=== PATIENT | male | born 1955 | race Caucasian/White ===

== ENCOUNTER → 2016-08-29 | Outpatient (CLI) | payer BC ==
[~2016-08-29] VITALS: Ht 177.8 cm; Wt 127.8 kg
[~2016-08-29] MED LIST: ACETAMINOPHEN325 M1 PO; ALTACE2.5 MG PO; AMBIEN 10 MG TA10 MG PO; ASPIR 8181 MG PO; ASPIRIN325 PO; BACTRIM DS TAB1 EACH; CARVEDILOL3.125 MG PO; CARVEDILOL6.25 MG PO; DOXYCYCLINE 10100 MG PO; FERREX 150150 MG PO; GLUCOPHAGE1000 MG PO; GRALISE1 EACH; GRALISE600 MG PO; HYDROCODON-ACE1 EAC2 PO; HYDROCODON-ACE1 EACH PO; IRON325 PO; KEFLEX500 M1 PO; KEFLEX500 MG PO; LACTINEX CHEWA1 EACH PO; LANTUS SUBQ; LANTUSSOLASTAR SUBQ; LASIX 40 MG TAB40 M2 PO; LIPITOR20 MG; LIPITOR80 MG PO; LISINOPRIL2.5 MG; LISINOPRIL20 MG PO; METFORMIN HYDR100 GM; MOM PO; MOVANTIK25 MG PO; NEURONTIN 300300 M1 PO; NEURONTIN 300M300 M2 PO; NEURONTIN300 MG; NEURONTIN600 MG PO; NORTRIPTYLINE H25 M3 PO; NORTRIPTYLINE H75 M1 PO; NOVOLOG FL100 UNIT/M; NOVOLOG MI100 UNIT/2 SUBQ; OXYCODONE HCL 55 MG; OXYCODONE HCL 55 MG PO; PERCOCET PO; PLAVIX 75 MG TA75 M1 PO; POTASSIUM20; PREDNISONE 20 M20 MG PO; REGRANEX1 TUBE; ROXICODONE5 M1 PO; ROXICODONE5 MG PO; SENOKOT-S1 TA1 PO; SILVADENE20 GM; STOOL SOFTENER100 MG PO; STOOL SOFTENER50 MG PO; TRULICITY0.75 MG/0. SQ; TYLENOL325 MG PO; UNICOMPLEX M TA1 TA1 PO; VENTOLIN HFA 1818 GM INH; VICODIN 5-5001 EACH PO; VITAMIN D1000 UNI1 PO; ZPAK PO
--- NOTE | ~2016-08-29 | HPC ---
[facility] [address] [place] [address] PAIN MANAGEMENT CONSULTATION Name: EDWIN DAVIS III Room #: [facility] [id number] Admission: 08/29/16 Attend Phys: Edwin Maciel DO Discharge: Date of : 51 Report #: [id number] THIS REPORT FOR: //name// CC: GERALD Mccann MD DATE OF SERVICE: 08/29/2016 DATE OF SERVICE: 08/29/2016 CHIEF COMPLAINT: Bilateral upper extremity pain secondary to brachial plexopathy. HISTORY OF PRESENT ILLNESS: As you know, the patient is a 61-year-old male, who returns today in followup visit for medication management. As you are aware, the patient was injured during a surgery that led to bilateral upper extremity paresthesias secondary to brachial plexopathies. He continues to utilize medication for pain control and returns today in between trips to [facility] for refills of his medication. He is placing current pain score 2/10. He states the pain is "always there, but worse as the day goes on." He states medications is about the only thing that has improved his symptoms. This pain began after a 5-vessel bypass 09/04/2012. ALLERGIES: PENICILLIN. CURRENT MEDICATIONS: Oxycodone 5 mg 4 times a day, nortriptyline 25 mg 3 tabs p.o. at bedtime, gabapentin 300 mg dose 3 tabs in the morning and 5 tabs at night, Trulicity 0.75 mg subq per week, Movantik 25 mg per day, albuterol 2 puffs q. 4 hours p.r.n., cholecalciferol 1000 units per day, ferrous sulfate 325 mg per day, NovoLog 6 units before each meal, acetaminophen 325 mg dose p.r.n., potassium 20 mEq p.o. every day, ramipril 2.5 mg once a day, Plavix 75 mg per day, Senokot-S 1 tab per day, furosemide 40 mg per day, docusate sodium 100 mg per day, aspirin 81 mg per day, Lantus 30 units before bedtime, metformin 1000 mg twice a day, atorvastatin 80 mg per day, zolpidem 10 mg p.o. at bedtime. SOCIAL HISTORY: The patient denies tobacco, alcohol or IV or illicit drug use. He is working, not receiving workmen's compensation, unaccompanied today. IMAGING: No new imaging available. PHYSICAL EXAMINATION: VITAL SIGNS: Blood pressure 133/84, pulse is 100, respiratory rate 16 and unlabored. The patient 96% on room air, height 5 feet 10 inches tall, weight 281.8 pounds, BMI calculated 40.4. GENERAL: Well-developed, well-nourished, well-hydrated, [place] [address] PAIN MANAGEMENT CONSULTATION Name: SUSANEDWIN JESS [facility] Room #: REG [facility] [id number] Admission: 08/29/16 Attend Phys: Edwin Maciel DO Discharge: Date of : 53 Report #: [id number] 61-year-old male appearing stated age, placing current pain score today 2/10. HEENT: Normocephalic, atraumatic. Pupils equal, round, reactive to light. Extraocular muscles are intact. Sclerae nonicteric without injection. NEUROLOGIC: Cranial nerves 2-12 grossly intact. Speech is fluent. EXTREMITIES: Show no clubbing, no cyanosis, no edema. MUSCULOSKELETAL: Upper extremity strength is equal and symmetrical. Axle Turner strength is weakened bilaterally noted over the C6-C7 dermatome and partial C8 dermatomes. Atrophy of the hands has not been noted. Tactile sensation is also reduced along the C7 and C8 dermatomes. ASSESSMENT: 1. Bilateral brachial plexopathies. 2. Peripheral neuropathy. 3. Diabetic peripheral neuropathy. 4. Chronic intractable pain. PLAN: 1. The patient returns today in followup visit for continuation of medication therapy. The patient and I had a long discussion about the medications and whether or not they are effective for pain control. The patient indicates without the medications, he would not be able to go about his daily work activities. He would not be able to travel, which is one of the major component of his job. The patient is very pleased with response to medication, he feels they are working beneficially and wishes to continue the therapy. He is denying side effects with their use. 2. The patient was provided a prescription of gabapentin 300 mg dose 3 tabs in the morning and 5 tabs at night, #240, released today with 5 refills. 3. The patient was provided prescription, nortriptyline 75 mg a total dose, which is 325 mg tablets in the morning hours. He was given #90 tablets with 5 refills. 4. The patient was provided prescription of oxycodone 5 mg dose 1 tab p.o. every 6 hours p.r.n. for pain, I have given the patient #120 releases of today, 4 weeks from today, 8 weeks from today. 5. The patient will return to our clinic in 3 months for medication therapy or earlier if he has to adjust the timing for trip to [place] and/or [place] where he is spending most of his working weeks. <ELECTRONICALLY SIGNED> By: Edwin Maciel DO 09/05/16 1602 [id number] Edwin Maciel DO /darien
[2016-08-29 08:47] VITALS: BP 133/84
== END ==
LOC: PAIN 06:55
DX: G54.0 Brachial plexus disorders (principal); G89.29 Other chronic pain; E13.42 Other specified diabetes mellitus with diabetic polyneuropathy

== ENCOUNTER → 2016-11-08 | Outpatient (CLI) | payer BC ==
[~2016-11-08] VITALS: Ht 177.8 cm; Wt 127.5 kg
[~2016-11-08] MED LIST changes: +MILK OF MA2400 MG/10 PO
--- NOTE | ~2016-11-08 | HPC ---
[facility] [address] [place] [address] PAIN MANAGEMENT CONSULTATION Name: EDWIN DAVIS III Room #: REG [facility] Pranay#: [id number] Admission: 11/08/16 Attend Phys: Edwin Maciel DO Discharge: Date of : 51 Report #: [id number] THIS REPORT FOR: //name// CC: GERALD Mayes MD DATE OF SERVICE: 11/08/2016 REFERRING PHYSICIAN: Noe Mayes MD CHIEF COMPLAINT: Bilateral upper extremity pain secondary to brachial plexopathy. HISTORY OF PRESENT ILLNESS: As you know, the patient is a 61-year-old male who returns today in followup visit for medication management. As you are aware, the patient was injured during a surgery leading to brachial plexopathies of the bilateral upper extremities. He continues to utilize medications in the form of oxycodone, gabapentin, and nortriptyline, all of which provide good benefit for the patient reporting 70% improvement in overall pain. He returns today in followup visit, specifically for refills of his oxycodone as he finds it is quite beneficial for pain control. He is denying any side effects with its use. ALLERGIES: PENICILLIN. CURRENT MEDICATIONS: Milk of magnesia p.r.n., Senokot-S 1 tab per day, oxycodone 5 mg every 6 hours p.r.n. for pain, nortriptyline 75 mg p.o. at bedtime, gabapentin 900 mg twice a day, albuterol 2 puffs q.4 hours p.r.n., Trulicity 0.75 mg/0.5 mL injected per week, cholecalciferol 1000 mg per day, ferrous sulfate 325 mg per day, NovoLog FlexPen 5 units before each meal, acetaminophen 325 mg 2 times a day, potassium chloride 20 mEq p.o. daily, Acidophilus 1 tab per day, ramipril 2.5 mg per day, Plavix 75 mg per day, furosemide 40 mg per day, docusate sodium 100 mg per day, aspirin 81 mg per day, Lantus 30 units before bedtime, metformin 1000 mg twice a day, atorvastatin 80 mg per day, and zolpidem 10 mg per day. SOCIAL HISTORY: The patient denies tobacco, alcohol, IV or illicit drug use. He is working, not receiving workmen's compensation, he is unaccompanied today. IMAGING: No new imaging available. PHYSICAL EXAMINATION: VITAL SIGNS: Blood pressure 119/78, pulse 98, respiratory rate 16 and unlabored, the patient is 96% on room air, height 5 feet 10 inches tall, weight 281 pounds, and BMI calculated 40.3. GENERAL: Well-developed, well-nourished, well-hydrated, [place] [address] PAIN MANAGEMENT CONSULTATION Name: EDWIN DAVIS [facility] [id number] Admission: 11/08/16 Attend Phys: Edwin Maciel DO Discharge: Date of : 53 Report #: [id number] 61-year-old male, appearing stated age, placing current pain score at approximately 1/10. HEENT: Normocephalic, atraumatic. Pupils are equal, round, and reactive to light. Extraocular muscles are intact. EXTREMITIES: Show no clubbing, no cyanosis, and no edema. MUSCULOSKELETAL: Upper extremity strength is symmetrical, decreased urology physician assistant strength is noted again today, mainly on the right when compared to left. This appears to be affecting both C8 dermatomes from a tactile sensation with reduction in sensation. Atrophy is beginning to be noted in the hands. Tactile sensation is reduced in the hands and the C8 dermatome as indicated above. ASSESSMENT: 1. Bilateral brachial plexopathies. 2. Peripheral neuropathy. 3. Chronic intractable pain. PLAN: 1. The patient returns today in followup visit for continuation of medication therapy. The patient feels medications are working beneficially for pain control. The patient is denying any side effects to medication at this time, does wish to continue on the oxycodone. We have recently refilled his gabapentin and nortriptyline via telephone refills. He is returning today for medication management in the form of controlled substances, oxycodone. The patient states that oxycodone is working well. Denies any side effects of somnolence, decreased mental acuity, disorientation, confusion or constipation with its use. 2. The patient was provided prescription of oxycodone 5 mg dose 1 tab p.o. q.6 hours p.r.n. for pain, #120, release dates of today, 4 weeks from today, 8 weeks from today, 3 months' worth of medication. 3. The patient will return to our clinic in 3 months for medication therapy, earlier if adjustments need to be made. I am pleased to see he is doing well. We will see him back in 3 months. By: [id number] Edwin Maciel DO /nt
[2016-11-08 08:18] VITALS: BP 119/78
== END ==
LOC: PAIN 06:37
DX: G54.0 Brachial plexus disorders (principal); G62.9 Polyneuropathy, unspecified; J20.9 Acute bronchitis, unspecified

== ENCOUNTER → 2016-12-12 | Outpatient (CLI) | payer BC | LOC: HYPER 06:55 | DX: E11.621 Type 2 diabetes mellitus with foot ulcer (principal); L97.511 Non-pressure chronic ulcer of other part of right foot limited to breakdown of skin; E11.622 Type 2 diabetes mellitus with other skin ulcer; L97.821 Non-pressure chronic ulcer of other part of left lower leg limited to breakdown of skin; E11.40 Type 2 diabetes mellitus with diabetic neuropathy, unspecified; E11.51 Type 2 diabetes mellitus with diabetic peripheral angiopathy without gangrene; I25.10 Atherosclerotic heart disease of native coronary artery without angina pectoris; E78.5 Hyperlipidemia, unspecified; E66.9 Obesity, unspecified; Z86.73 Personal history of transient ischemic attack (TIA), and cerebral infarction without residual deficits; Z95.1 Presence of aortocoronary bypass graft ==

== ENCOUNTER → 2017-01-09 | Outpatient (CLI) | payer BC | LOC: HYPER 07:03 | DX: E11.621 Type 2 diabetes mellitus with foot ulcer (principal); L97.511 Non-pressure chronic ulcer of other part of right foot limited to breakdown of skin; E11.51 Type 2 diabetes mellitus with diabetic peripheral angiopathy without gangrene; E11.40 Type 2 diabetes mellitus with diabetic neuropathy, unspecified; I25.10 Atherosclerotic heart disease of native coronary artery without angina pectoris; E78.5 Hyperlipidemia, unspecified; Z86.73 Personal history of transient ischemic attack (TIA), and cerebral infarction without residual deficits; E66.9 Obesity, unspecified; Z68.37 Body mass index [BMI] 37.0-37.9, adult; Z89.512 Acquired absence of left leg below knee; Z95.1 Presence of aortocoronary bypass graft ==

== ENCOUNTER → 2017-02-01 | Outpatient (CLI) | payer BC | LOC: HYPER 06:52 | DX: E11.621 Type 2 diabetes mellitus with foot ulcer (principal); L97.511 Non-pressure chronic ulcer of other part of right foot limited to breakdown of skin; E11.40 Type 2 diabetes mellitus with diabetic neuropathy, unspecified; E11.51 Type 2 diabetes mellitus with diabetic peripheral angiopathy without gangrene; I25.10 Atherosclerotic heart disease of native coronary artery without angina pectoris; E78.5 Hyperlipidemia, unspecified; Z86.73 Personal history of transient ischemic attack (TIA), and cerebral infarction without residual deficits; E66.9 Obesity, unspecified; Z68.37 Body mass index [BMI] 37.0-37.9, adult; Z95.1 Presence of aortocoronary bypass graft; Z89.512 Acquired absence of left leg below knee ==

== ENCOUNTER → 2017-02-22 | Outpatient (CLI) | payer BC | LOC: HYPER 07:11 | DX: E11.621 Type 2 diabetes mellitus with foot ulcer (principal); L97.511 Non-pressure chronic ulcer of other part of right foot limited to breakdown of skin; E11.40 Type 2 diabetes mellitus with diabetic neuropathy, unspecified; E11.51 Type 2 diabetes mellitus with diabetic peripheral angiopathy without gangrene; I25.10 Atherosclerotic heart disease of native coronary artery without angina pectoris; E78.5 Hyperlipidemia, unspecified; Z86.73 Personal history of transient ischemic attack (TIA), and cerebral infarction without residual deficits; E66.9 Obesity, unspecified; Z95.1 Presence of aortocoronary bypass graft ==

== ENCOUNTER → 2017-03-13 | Outpatient (CLI) | payer BC ==
[~2017-03-13] VITALS: Ht 177.8 cm; Wt 128.8 kg
--- NOTE | ~2017-03-13 | HPC ---
[facility] [place] [address] [place] [address] PAIN MANAGEMENT CONSULTATION Name: EDWIN DAVIS III Room #: REG [facility] Pranay#: [id number] Admission: 03/13/17 Attend Phys: Edwin Maciel DO Discharge: Date of : 51 Report #: [id number] THIS REPORT FOR: //name// CC: GERALD Mayes MD DATE OF SERVICE: 03/13/2017 REFERRING PHYSICIAN: Noe Mayes MD CHIEF COMPLAINT: Bilateral upper extremity pain secondary to brachial plexopathy. HISTORY OF PRESENT ILLNESS: As you know, the patient is a 61-year-old male who returns today in followup visit for medication management. 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 He returns requesting refill on medications. He indicates medications are working beneficially for his brachial plexopathy that occurred after surgery. He returns reporting about a 70% improvement in overall pain with medications. He is placing pain score today at 6/10 as he did not take his pain medication this morning. ALLERGIES: PENICILLIN. CURRENT MEDICATIONS: Oxycodone 5 mg every 6 hours p.r.n. for pain, nortriptyline 75 mg p.o. at bedtime, gabapentin 900 mg b.i.d. milk of magnesia once a day, Senokot-S 1 tab per day, Trulicity 0.75 mg injected per week, albuterol 2 puffs q.4 hour p.r.n., cholecalciferol 1000 units per day, ferrous sulfate 325 mg per day, potassium chloride 20 mEq p.o. daily, Ramipril 2.5 mg once a day, Plavix 75 mg per day, furosemide 40 mg per day, aspirin 81 mg per day, metformin 1000 mg twice a day, atorvastatin 80 mg per day, and zolpidem 10 mg p.o. at bedtime. SOCIAL HISTORY: The patient denies tobacco, alcohol, IV or illicit drug use. He is working, not receiving workmen's compensation, unaccompanied today. IMAGING: No new imaging available. PHYSICAL EXAMINATION: VITAL SIGNS: Blood pressure 134/83, pulse 85, respiratory rate 14 and unlabored, the patient is 97% on room air, height 5 feet 10 inches tall, weight 284 pounds, and BMI calculated 40.7. GENERAL: Well-developed, well-nourished, well-hydrated, class 2 to class 3 morbidly obese male, appearing stated age, placing current pain score at 6/10. HEENT: Normocephalic, atraumatic. Pupils are equal, round, [place] [address] PAIN MANAGEMENT CONSULTATION Name: EDWIN DAVIS [facility] Room #: REG CLI M..#: [id number] Admission: 03/13/17 Attend Phys: Edwin Maciel DO Discharge: Date of : 51 Report #: [id number] EXTREMITIES: Show no clubbing, no cyanosis, and no edema. MUSCULOSKELETAL: Upper extremity strength remains equal and symmetrical 5/5. There is continued java developer strength change bilaterally, right greater than left. Appears to be along the C8 dermatome from a tactile sensation standpoint again today, atrophy is noted in the hands, right greater than left. Deep tendon reflexes are equal and symmetrical. ASSESSMENT: 1. Bilateral brachial plexopathies. 2. Peripheral neuropathy. 3. Chronic intractable pain. PLAN: 1. The patient has returned today in followup visit for medication therapy. He is reporting about 70% improvement in overall pain with the treatment provided today. He has had no resolution of his brachial plexopathy since our last visit. He continues to experience pain level of 6/10 for which he returns for refills of medication. He is on his way to [place] starting tomorrow and will need to fill his medications today. I provided the patient with prescriptions for the next 3 months. 2. The patient was provided a prescription of oxycodone 5 mg dose 1 tab every 6 hours p.r.n. for pain, #120, release dates of today, 4 weeks from today, 8 weeks from today, 3 months' worth of medication. The patient denies side effects with the therapy. 3. The patient was provided a refill prescription on nortriptyline 25 mg dose 3 tabs p.o. at bedtime, total of 75 mg dose, #90 with 5 refills, 6 months' worth of medication. 4. The patient was provided a prescription of gabapentin 300 mg dose 3 tabs twice a day, #240 with 5 refills. 5. The patient will return to our clinic in 3 months for medication therapy, earlier if necessary to receive refills. By: [id number] Edwin Maciel DO /nt
[2017-03-13 09:57] VITALS: BP 134/83
== END ==
LOC: PAIN 06:28
DX: G54.0 Brachial plexus disorders (principal); G62.9 Polyneuropathy, unspecified

== ENCOUNTER → 2017-04-24 | Outpatient (CLI) | payer BC ==
[~2017-04-24] MED LIST changes: +FENOFIBRATE160 MG PO; +METOPROLOL SUCC25 M1 PO; +XIGDUO XR 10 M1 EAC1 PO; +ZONTIVITY2.08 MG PO
== END ==
LOC: HYPER 08:00
DX: E11.621 Type 2 diabetes mellitus with foot ulcer (principal); L97.512 Non-pressure chronic ulcer of other part of right foot with fat layer exposed; E11.40 Type 2 diabetes mellitus with diabetic neuropathy, unspecified; E11.51 Type 2 diabetes mellitus with diabetic peripheral angiopathy without gangrene; I25.10 Atherosclerotic heart disease of native coronary artery without angina pectoris; E78.5 Hyperlipidemia, unspecified; Z86.73 Personal history of transient ischemic attack (TIA), and cerebral infarction without residual deficits; E66.9 Obesity, unspecified; Z68.37 Body mass index [BMI] 37.0-37.9, adult; Z95.1 Presence of aortocoronary bypass graft; Z89.512 Acquired absence of left leg below knee

== ENCOUNTER → 2017-05-09 | Outpatient (CLI) | payer BC | LOC: HYPER 04-30 11:49 | DX: T81.31XD Disruption of external operation (surgical) wound, not elsewhere classified, subsequent encounter (principal); L97.511 Non-pressure chronic ulcer of other part of right foot limited to breakdown of skin; E11.621 Type 2 diabetes mellitus with foot ulcer; E11.40 Type 2 diabetes mellitus with diabetic neuropathy, unspecified; E11.51 Type 2 diabetes mellitus with diabetic peripheral angiopathy without gangrene; I25.10 Atherosclerotic heart disease of native coronary artery without angina pectoris; E78.5 Hyperlipidemia, unspecified; L84 Corns and callosities; E66.9 Obesity, unspecified; Z68.37 Body mass index [BMI] 37.0-37.9, adult; Z95.1 Presence of aortocoronary bypass graft; Z86.73 Personal history of transient ischemic attack (TIA), and cerebral infarction without residual deficits; Z89.512 Acquired absence of left leg below knee; Y83.8 Other surgical procedures as the cause of abnormal reaction of the patient, or of later complication, without mention of misadventure at the time of the procedure ==

== ENCOUNTER → 2017-05-14 | Outpatient (CLI) | payer BC | LOC: RAD 08:42 | DX: J98.11 Atelectasis (principal); E11.621 Type 2 diabetes mellitus with foot ulcer; T81.30XA Disruption of wound, unspecified, initial encounter; Z89.421 Acquired absence of other right toe(s) ==

== ENCOUNTER → 2017-05-15 | Outpatient (CLI) | payer BC | LOC: HYPER 06:48 | DX: T81.31XD Disruption of external operation (surgical) wound, not elsewhere classified, subsequent encounter (principal); E11.621 Type 2 diabetes mellitus with foot ulcer; L97.511 Non-pressure chronic ulcer of other part of right foot limited to breakdown of skin; E11.40 Type 2 diabetes mellitus with diabetic neuropathy, unspecified; E11.51 Type 2 diabetes mellitus with diabetic peripheral angiopathy without gangrene; I25.10 Atherosclerotic heart disease of native coronary artery without angina pectoris; E78.5 Hyperlipidemia, unspecified; Z86.73 Personal history of transient ischemic attack (TIA), and cerebral infarction without residual deficits; Z89.421 Acquired absence of other right toe(s); E66.9 Obesity, unspecified; Z95.1 Presence of aortocoronary bypass graft; Z68.37 Body mass index [BMI] 37.0-37.9, adult; Y83.8 Other surgical procedures as the cause of abnormal reaction of the patient, or of later complication, without mention of misadventure at the time of the procedure ==

== ENCOUNTER → 2017-05-16 | Outpatient (CLI) | payer BC | LOC: HYPER 06:50 | DX: T81.31XD Disruption of external operation (surgical) wound, not elsewhere classified, subsequent encounter (principal); E11.621 Type 2 diabetes mellitus with foot ulcer; L97.511 Non-pressure chronic ulcer of other part of right foot limited to breakdown of skin; E11.40 Type 2 diabetes mellitus with diabetic neuropathy, unspecified; E11.51 Type 2 diabetes mellitus with diabetic peripheral angiopathy without gangrene; I25.10 Atherosclerotic heart disease of native coronary artery without angina pectoris; E78.5 Hyperlipidemia, unspecified; E66.9 Obesity, unspecified; Z68.37 Body mass index [BMI] 37.0-37.9, adult; Z89.421 Acquired absence of other right toe(s); Z86.73 Personal history of transient ischemic attack (TIA), and cerebral infarction without residual deficits; Z89.512 Acquired absence of left leg below knee; Z95.1 Presence of aortocoronary bypass graft; Y83.8 Other surgical procedures as the cause of abnormal reaction of the patient, or of later complication, without mention of misadventure at the time of the procedure ==

== ENCOUNTER → 2017-05-16 | Outpatient (CLI) | payer BC | LOC: HYPER 07:50 | DX: T81.31XD Disruption of external operation (surgical) wound, not elsewhere classified, subsequent encounter (principal); E11.621 Type 2 diabetes mellitus with foot ulcer; L97.511 Non-pressure chronic ulcer of other part of right foot limited to breakdown of skin; E11.40 Type 2 diabetes mellitus with diabetic neuropathy, unspecified; E11.51 Type 2 diabetes mellitus with diabetic peripheral angiopathy without gangrene; I25.10 Atherosclerotic heart disease of native coronary artery without angina pectoris; E78.5 Hyperlipidemia, unspecified; E66.9 Obesity, unspecified; Z68.37 Body mass index [BMI] 37.0-37.9, adult; Z95.1 Presence of aortocoronary bypass graft; Z89.512 Acquired absence of left leg below knee; Z89.421 Acquired absence of other right toe(s); Z86.73 Personal history of transient ischemic attack (TIA), and cerebral infarction without residual deficits; Y83.8 Other surgical procedures as the cause of abnormal reaction of the patient, or of later complication, without mention of misadventure at the time of the procedure ==

== ENCOUNTER → 2017-05-17 | Outpatient (CLI) | payer BC | LOC: HYPER 06:28 | DX: T81.31XD Disruption of external operation (surgical) wound, not elsewhere classified, subsequent encounter (principal); E11.621 Type 2 diabetes mellitus with foot ulcer; L97.511 Non-pressure chronic ulcer of other part of right foot limited to breakdown of skin; E11.40 Type 2 diabetes mellitus with diabetic neuropathy, unspecified; E11.51 Type 2 diabetes mellitus with diabetic peripheral angiopathy without gangrene; I25.10 Atherosclerotic heart disease of native coronary artery without angina pectoris; E78.5 Hyperlipidemia, unspecified; Z86.73 Personal history of transient ischemic attack (TIA), and cerebral infarction without residual deficits; Z89.512 Acquired absence of left leg below knee; Z95.0 Presence of cardiac pacemaker; Z89.421 Acquired absence of other right toe(s); Y83.8 Other surgical procedures as the cause of abnormal reaction of the patient, or of later complication, without mention of misadventure at the time of the procedure ==

== ENCOUNTER → 2017-05-22 | Outpatient (CLI) | payer BC | LOC: HYPER 06:57 | DX: T81.31XD Disruption of external operation (surgical) wound, not elsewhere classified, subsequent encounter (principal); E11.621 Type 2 diabetes mellitus with foot ulcer; L97.511 Non-pressure chronic ulcer of other part of right foot limited to breakdown of skin; E11.40 Type 2 diabetes mellitus with diabetic neuropathy, unspecified; E11.51 Type 2 diabetes mellitus with diabetic peripheral angiopathy without gangrene; E11.69 Type 2 diabetes mellitus with other specified complication; I25.10 Atherosclerotic heart disease of native coronary artery without angina pectoris; E78.5 Hyperlipidemia, unspecified; E66.9 Obesity, unspecified; Z68.37 Body mass index [BMI] 37.0-37.9, adult; Z86.73 Personal history of transient ischemic attack (TIA), and cerebral infarction without residual deficits; Z95.1 Presence of aortocoronary bypass graft; Z89.421 Acquired absence of other right toe(s); Y83.8 Other surgical procedures as the cause of abnormal reaction of the patient, or of later complication, without mention of misadventure at the time of the procedure ==

== ENCOUNTER → 2017-05-23 | Outpatient (CLI) | payer BC | LOC: HYPER 06:42 | DX: T81.31XD Disruption of external operation (surgical) wound, not elsewhere classified, subsequent encounter (principal); E11.621 Type 2 diabetes mellitus with foot ulcer; L97.511 Non-pressure chronic ulcer of other part of right foot limited to breakdown of skin; E11.40 Type 2 diabetes mellitus with diabetic neuropathy, unspecified; E11.51 Type 2 diabetes mellitus with diabetic peripheral angiopathy without gangrene; I25.10 Atherosclerotic heart disease of native coronary artery without angina pectoris; E78.5 Hyperlipidemia, unspecified; E66.9 Obesity, unspecified; Z68.37 Body mass index [BMI] 37.0-37.9, adult; Z86.73 Personal history of transient ischemic attack (TIA), and cerebral infarction without residual deficits; Z89.421 Acquired absence of other right toe(s); Z95.1 Presence of aortocoronary bypass graft; Y83.8 Other surgical procedures as the cause of abnormal reaction of the patient, or of later complication, without mention of misadventure at the time of the procedure ==

== ENCOUNTER → 2017-05-24 | Outpatient (CLI) | payer BC ==
[~2017-05-24] MED LIST changes: +MAXIPIME2 GM IV PUSH; +NORTRIPTYLINE H75 M2 PO; +OXYCODONE HCL10 MG PO; +ROXICODONE5 M2 PO; +SENNA-DOCUSATE1 EACH PO
== END ==
LOC: HYPER 06:48
DX: T87.81 Dehiscence of amputation stump (principal); E11.621 Type 2 diabetes mellitus with foot ulcer; L97.511 Non-pressure chronic ulcer of other part of right foot limited to breakdown of skin; E11.40 Type 2 diabetes mellitus with diabetic neuropathy, unspecified; E11.51 Type 2 diabetes mellitus with diabetic peripheral angiopathy without gangrene; I25.10 Atherosclerotic heart disease of native coronary artery without angina pectoris; E78.5 Hyperlipidemia, unspecified; E66.9 Obesity, unspecified; Z68.37 Body mass index [BMI] 37.0-37.9, adult; Z95.1 Presence of aortocoronary bypass graft; Z86.73 Personal history of transient ischemic attack (TIA), and cerebral infarction without residual deficits; Z89.512 Acquired absence of left leg below knee; Y83.5 Amputation of limb(s) as the cause of abnormal reaction of the patient, or of later complication, without mention of misadventure at the time of the procedure

== ENCOUNTER → 2017-05-24 | Outpatient (CLI) | payer BC | LOC: HYPER 06:48 | DX: T87.81 Dehiscence of amputation stump (principal); E11.621 Type 2 diabetes mellitus with foot ulcer; L97.511 Non-pressure chronic ulcer of other part of right foot limited to breakdown of skin; E11.40 Type 2 diabetes mellitus with diabetic neuropathy, unspecified; E11.51 Type 2 diabetes mellitus with diabetic peripheral angiopathy without gangrene; I25.10 Atherosclerotic heart disease of native coronary artery without angina pectoris; E78.5 Hyperlipidemia, unspecified; E66.9 Obesity, unspecified; Z86.73 Personal history of transient ischemic attack (TIA), and cerebral infarction without residual deficits; Z68.37 Body mass index [BMI] 37.0-37.9, adult; Z89.512 Acquired absence of left leg below knee; Z95.1 Presence of aortocoronary bypass graft; Y83.5 Amputation of limb(s) as the cause of abnormal reaction of the patient, or of later complication, without mention of misadventure at the time of the procedure ==

== ENCOUNTER → 2017-05-25 | Outpatient (CLI) | payer BC | LOC: HYPER 08:16 | DX: T81.31XD Disruption of external operation (surgical) wound, not elsewhere classified, subsequent encounter (principal); E11.621 Type 2 diabetes mellitus with foot ulcer; L97.511 Non-pressure chronic ulcer of other part of right foot limited to breakdown of skin; E11.40 Type 2 diabetes mellitus with diabetic neuropathy, unspecified; E11.51 Type 2 diabetes mellitus with diabetic peripheral angiopathy without gangrene; I25.10 Atherosclerotic heart disease of native coronary artery without angina pectoris; E78.5 Hyperlipidemia, unspecified; E66.9 Obesity, unspecified; Z68.37 Body mass index [BMI] 37.0-37.9, adult; Z86.73 Personal history of transient ischemic attack (TIA), and cerebral infarction without residual deficits; Z89.512 Acquired absence of left leg below knee; Z95.1 Presence of aortocoronary bypass graft; Y83.8 Other surgical procedures as the cause of abnormal reaction of the patient, or of later complication, without mention of misadventure at the time of the procedure ==

== ENCOUNTER → 2017-05-29 | Outpatient (CLI) | payer BC | LOC: HYPER 06:57 | DX: T81.31XD Disruption of external operation (surgical) wound, not elsewhere classified, subsequent encounter (principal); E11.621 Type 2 diabetes mellitus with foot ulcer; L97.511 Non-pressure chronic ulcer of other part of right foot limited to breakdown of skin; E11.40 Type 2 diabetes mellitus with diabetic neuropathy, unspecified; E11.51 Type 2 diabetes mellitus with diabetic peripheral angiopathy without gangrene; I25.10 Atherosclerotic heart disease of native coronary artery without angina pectoris; E78.5 Hyperlipidemia, unspecified; E66.9 Obesity, unspecified; Z68.37 Body mass index [BMI] 37.0-37.9, adult; Z89.512 Acquired absence of left leg below knee; Z86.73 Personal history of transient ischemic attack (TIA), and cerebral infarction without residual deficits; Z89.421 Acquired absence of other right toe(s); Z95.1 Presence of aortocoronary bypass graft; Y83.8 Other surgical procedures as the cause of abnormal reaction of the patient, or of later complication, without mention of misadventure at the time of the procedure ==

== ENCOUNTER → 2017-05-30 | Outpatient (CLI) | payer BC | LOC: HYPER 06:50 | DX: T81.31XD Disruption of external operation (surgical) wound, not elsewhere classified, subsequent encounter (principal); E11.621 Type 2 diabetes mellitus with foot ulcer; L97.511 Non-pressure chronic ulcer of other part of right foot limited to breakdown of skin; E11.40 Type 2 diabetes mellitus with diabetic neuropathy, unspecified; E11.51 Type 2 diabetes mellitus with diabetic peripheral angiopathy without gangrene; I25.10 Atherosclerotic heart disease of native coronary artery without angina pectoris; E78.5 Hyperlipidemia, unspecified; E66.9 Obesity, unspecified; Z68.37 Body mass index [BMI] 37.0-37.9, adult; Z86.73 Personal history of transient ischemic attack (TIA), and cerebral infarction without residual deficits; Z89.512 Acquired absence of left leg below knee; Z95.1 Presence of aortocoronary bypass graft; Z89.421 Acquired absence of other right toe(s); Y83.8 Other surgical procedures as the cause of abnormal reaction of the patient, or of later complication, without mention of misadventure at the time of the procedure ==

== ENCOUNTER → 2017-05-31 | Outpatient (CLI) | payer BC | LOC: HYPER 06:42 | DX: T81.31XD Disruption of external operation (surgical) wound, not elsewhere classified, subsequent encounter (principal); E11.621 Type 2 diabetes mellitus with foot ulcer; L97.511 Non-pressure chronic ulcer of other part of right foot limited to breakdown of skin; E11.40 Type 2 diabetes mellitus with diabetic neuropathy, unspecified; E11.51 Type 2 diabetes mellitus with diabetic peripheral angiopathy without gangrene; I25.10 Atherosclerotic heart disease of native coronary artery without angina pectoris; E78.5 Hyperlipidemia, unspecified; E66.9 Obesity, unspecified; L89.892 Pressure ulcer of other site, stage 2; Z95.1 Presence of aortocoronary bypass graft; Z89.421 Acquired absence of other right toe(s); Z86.73 Personal history of transient ischemic attack (TIA), and cerebral infarction without residual deficits; Z89.512 Acquired absence of left leg below knee; Y83.5 Amputation of limb(s) as the cause of abnormal reaction of the patient, or of later complication, without mention of misadventure at the time of the procedure ==

== ENCOUNTER → 2017-05-31 | Outpatient (CLI) | payer BC | LOC: HYPER 06:43 | DX: T81.31XD Disruption of external operation (surgical) wound, not elsewhere classified, subsequent encounter (principal); E11.621 Type 2 diabetes mellitus with foot ulcer; L97.511 Non-pressure chronic ulcer of other part of right foot limited to breakdown of skin; E11.40 Type 2 diabetes mellitus with diabetic neuropathy, unspecified; E11.51 Type 2 diabetes mellitus with diabetic peripheral angiopathy without gangrene; Z89.421 Acquired absence of other right toe(s); I25.10 Atherosclerotic heart disease of native coronary artery without angina pectoris; E78.5 Hyperlipidemia, unspecified; Z86.73 Personal history of transient ischemic attack (TIA), and cerebral infarction without residual deficits; E66.9 Obesity, unspecified; Z68.37 Body mass index [BMI] 37.0-37.9, adult; Z95.1 Presence of aortocoronary bypass graft; Z89.512 Acquired absence of left leg below knee; Y83.8 Other surgical procedures as the cause of abnormal reaction of the patient, or of later complication, without mention of misadventure at the time of the procedure ==

== ENCOUNTER → 2017-06-01 | Outpatient (CLI) | payer BC | LOC: HYPER 08:01 | DX: T81.31XD Disruption of external operation (surgical) wound, not elsewhere classified, subsequent encounter (principal); E11.621 Type 2 diabetes mellitus with foot ulcer; L97.511 Non-pressure chronic ulcer of other part of right foot limited to breakdown of skin; E11.40 Type 2 diabetes mellitus with diabetic neuropathy, unspecified; E11.51 Type 2 diabetes mellitus with diabetic peripheral angiopathy without gangrene; I25.10 Atherosclerotic heart disease of native coronary artery without angina pectoris; E78.5 Hyperlipidemia, unspecified; L89.892 Pressure ulcer of other site, stage 2; E66.9 Obesity, unspecified; Z86.73 Personal history of transient ischemic attack (TIA), and cerebral infarction without residual deficits; Z89.512 Acquired absence of left leg below knee; Z95.1 Presence of aortocoronary bypass graft; Z89.421 Acquired absence of other right toe(s); Y83.5 Amputation of limb(s) as the cause of abnormal reaction of the patient, or of later complication, without mention of misadventure at the time of the procedure ==

== ENCOUNTER → 2017-06-04 | Outpatient (CLI) | payer BC | LOC: HYPER 07:10 | DX: T81.31XD Disruption of external operation (surgical) wound, not elsewhere classified, subsequent encounter (principal); E11.621 Type 2 diabetes mellitus with foot ulcer; L97.511 Non-pressure chronic ulcer of other part of right foot limited to breakdown of skin; E11.40 Type 2 diabetes mellitus with diabetic neuropathy, unspecified; E11.51 Type 2 diabetes mellitus with diabetic peripheral angiopathy without gangrene; I25.10 Atherosclerotic heart disease of native coronary artery without angina pectoris; E78.5 Hyperlipidemia, unspecified; E66.9 Obesity, unspecified; Z68.37 Body mass index [BMI] 37.0-37.9, adult; Z86.73 Personal history of transient ischemic attack (TIA), and cerebral infarction without residual deficits; Z89.421 Acquired absence of other right toe(s); Z95.1 Presence of aortocoronary bypass graft; Z89.512 Acquired absence of left leg below knee; Y83.8 Other surgical procedures as the cause of abnormal reaction of the patient, or of later complication, without mention of misadventure at the time of the procedure ==

== ENCOUNTER → 2017-06-05 | Outpatient (CLI) | payer BC | LOC: HYPER 06:37 | DX: T87.81 Dehiscence of amputation stump (principal); L89.892 Pressure ulcer of other site, stage 2; E11.621 Type 2 diabetes mellitus with foot ulcer; L97.511 Non-pressure chronic ulcer of other part of right foot limited to breakdown of skin; L97.821 Non-pressure chronic ulcer of other part of left lower leg limited to breakdown of skin; E11.40 Type 2 diabetes mellitus with diabetic neuropathy, unspecified; E11.51 Type 2 diabetes mellitus with diabetic peripheral angiopathy without gangrene; I25.10 Atherosclerotic heart disease of native coronary artery without angina pectoris; E78.5 Hyperlipidemia, unspecified; E66.9 Obesity, unspecified; Z68.37 Body mass index [BMI] 37.0-37.9, adult; Z95.1 Presence of aortocoronary bypass graft; Z86.73 Personal history of transient ischemic attack (TIA), and cerebral infarction without residual deficits; Y83.5 Amputation of limb(s) as the cause of abnormal reaction of the patient, or of later complication, without mention of misadventure at the time of the procedure ==

== ENCOUNTER → 2017-06-06 | Outpatient (CLI) | payer BC | LOC: HYPER 06:35 | DX: T87.81 Dehiscence of amputation stump (principal); E11.621 Type 2 diabetes mellitus with foot ulcer; E11.622 Type 2 diabetes mellitus with other skin ulcer; L97.511 Non-pressure chronic ulcer of other part of right foot limited to breakdown of skin; L97.821 Non-pressure chronic ulcer of other part of left lower leg limited to breakdown of skin; L89.892 Pressure ulcer of other site, stage 2; E11.51 Type 2 diabetes mellitus with diabetic peripheral angiopathy without gangrene; E11.40 Type 2 diabetes mellitus with diabetic neuropathy, unspecified; I25.10 Atherosclerotic heart disease of native coronary artery without angina pectoris; E78.5 Hyperlipidemia, unspecified; L84 Corns and callosities; E66.9 Obesity, unspecified; Z68.37 Body mass index [BMI] 37.0-37.9, adult; Z86.73 Personal history of transient ischemic attack (TIA), and cerebral infarction without residual deficits; Z95.1 Presence of aortocoronary bypass graft; Z89.512 Acquired absence of left leg below knee; Z89.421 Acquired absence of other right toe(s); Y83.5 Amputation of limb(s) as the cause of abnormal reaction of the patient, or of later complication, without mention of misadventure at the time of the procedure ==

== ENCOUNTER → 2017-06-08 | Outpatient (CLI) | payer BC | LOC: HYPER 06-06 06:38 | DX: T87.89 Other complications of amputation stump (principal); T81.31XD Disruption of external operation (surgical) wound, not elsewhere classified, subsequent encounter; E11.621 Type 2 diabetes mellitus with foot ulcer; L97.821 Non-pressure chronic ulcer of other part of left lower leg limited to breakdown of skin; L89.892 Pressure ulcer of other site, stage 2; E11.40 Type 2 diabetes mellitus with diabetic neuropathy, unspecified; I73.9 Peripheral vascular disease, unspecified; I25.10 Atherosclerotic heart disease of native coronary artery without angina pectoris; E78.5 Hyperlipidemia, unspecified; L84 Corns and callosities; Z86.73 Personal history of transient ischemic attack (TIA), and cerebral infarction without residual deficits; Z95.1 Presence of aortocoronary bypass graft; Z89.512 Acquired absence of left leg below knee; Z89.421 Acquired absence of other right toe(s); Y83.5 Amputation of limb(s) as the cause of abnormal reaction of the patient, or of later complication, without mention of misadventure at the time of the procedure; Y83.8 Other surgical procedures as the cause of abnormal reaction of the patient, or of later complication, without mention of misadventure at the time of the procedure ==

== ENCOUNTER → 2017-06-08 | Outpatient (CLI) | payer BC | LOC: HYPER 07:57 | DX: T87.89 Other complications of amputation stump (principal); T81.31XD Disruption of external operation (surgical) wound, not elsewhere classified, subsequent encounter; E11.621 Type 2 diabetes mellitus with foot ulcer; L97.821 Non-pressure chronic ulcer of other part of left lower leg limited to breakdown of skin; E11.51 Type 2 diabetes mellitus with diabetic peripheral angiopathy without gangrene; E11.40 Type 2 diabetes mellitus with diabetic neuropathy, unspecified; I25.10 Atherosclerotic heart disease of native coronary artery without angina pectoris; E78.5 Hyperlipidemia, unspecified; L84 Corns and callosities; Z86.73 Personal history of transient ischemic attack (TIA), and cerebral infarction without residual deficits; Z95.1 Presence of aortocoronary bypass graft; Z89.421 Acquired absence of other right toe(s); Y92.89 Other specified places as the place of occurrence of the external cause; Y83.5 Amputation of limb(s) as the cause of abnormal reaction of the patient, or of later complication, without mention of misadventure at the time of the procedure; Y83.8 Other surgical procedures as the cause of abnormal reaction of the patient, or of later complication, without mention of misadventure at the time of the procedure ==

== ENCOUNTER → 2017-06-11 | Outpatient (CLI) | payer BC | LOC: HYPER 07:02 | DX: T87.81 Dehiscence of amputation stump (principal); E11.622 Type 2 diabetes mellitus with other skin ulcer; E11.621 Type 2 diabetes mellitus with foot ulcer; L97.821 Non-pressure chronic ulcer of other part of left lower leg limited to breakdown of skin; L97.511 Non-pressure chronic ulcer of other part of right foot limited to breakdown of skin; L89.892 Pressure ulcer of other site, stage 2; E11.40 Type 2 diabetes mellitus with diabetic neuropathy, unspecified; E11.51 Type 2 diabetes mellitus with diabetic peripheral angiopathy without gangrene; I25.10 Atherosclerotic heart disease of native coronary artery without angina pectoris; E78.5 Hyperlipidemia, unspecified; E66.9 Obesity, unspecified; Z68.37 Body mass index [BMI] 37.0-37.9, adult; Z95.1 Presence of aortocoronary bypass graft; Z86.73 Personal history of transient ischemic attack (TIA), and cerebral infarction without residual deficits; Y83.5 Amputation of limb(s) as the cause of abnormal reaction of the patient, or of later complication, without mention of misadventure at the time of the procedure ==

== ENCOUNTER → 2017-06-12 | Outpatient (CLI) | payer BC | LOC: HYPER 06:49 | DX: T87.81 Dehiscence of amputation stump (principal); L89.892 Pressure ulcer of other site, stage 2; E11.622 Type 2 diabetes mellitus with other skin ulcer; E11.621 Type 2 diabetes mellitus with foot ulcer; L97.821 Non-pressure chronic ulcer of other part of left lower leg limited to breakdown of skin; L97.511 Non-pressure chronic ulcer of other part of right foot limited to breakdown of skin; E11.40 Type 2 diabetes mellitus with diabetic neuropathy, unspecified; E11.51 Type 2 diabetes mellitus with diabetic peripheral angiopathy without gangrene; I25.10 Atherosclerotic heart disease of native coronary artery without angina pectoris; E78.5 Hyperlipidemia, unspecified; E66.9 Obesity, unspecified; Z95.1 Presence of aortocoronary bypass graft; Z86.73 Personal history of transient ischemic attack (TIA), and cerebral infarction without residual deficits; Y83.5 Amputation of limb(s) as the cause of abnormal reaction of the patient, or of later complication, without mention of misadventure at the time of the procedure; Z68.37 Body mass index [BMI] 37.0-37.9, adult ==

== ENCOUNTER → 2017-06-13 | Outpatient (CLI) | payer BC | LOC: HYPER 06:45 | DX: T81.31XD Disruption of external operation (surgical) wound, not elsewhere classified, subsequent encounter (principal); E11.621 Type 2 diabetes mellitus with foot ulcer; L97.511 Non-pressure chronic ulcer of other part of right foot limited to breakdown of skin; E11.40 Type 2 diabetes mellitus with diabetic neuropathy, unspecified; E11.51 Type 2 diabetes mellitus with diabetic peripheral angiopathy without gangrene; I25.10 Atherosclerotic heart disease of native coronary artery without angina pectoris; E78.5 Hyperlipidemia, unspecified; E66.9 Obesity, unspecified; Z68.37 Body mass index [BMI] 37.0-37.9, adult; Z86.73 Personal history of transient ischemic attack (TIA), and cerebral infarction without residual deficits; Z89.421 Acquired absence of other right toe(s); Z95.1 Presence of aortocoronary bypass graft; Z89.512 Acquired absence of left leg below knee; Y83.8 Other surgical procedures as the cause of abnormal reaction of the patient, or of later complication, without mention of misadventure at the time of the procedure ==

== ENCOUNTER → 2017-06-14 | Outpatient (CLI) | payer BC | LOC: HYPER 06:31 | DX: T87.81 Dehiscence of amputation stump (principal); L89.892 Pressure ulcer of other site, stage 2; E11.621 Type 2 diabetes mellitus with foot ulcer; L97.511 Non-pressure chronic ulcer of other part of right foot limited to breakdown of skin; E11.51 Type 2 diabetes mellitus with diabetic peripheral angiopathy without gangrene; L97.821 Non-pressure chronic ulcer of other part of left lower leg limited to breakdown of skin; I25.10 Atherosclerotic heart disease of native coronary artery without angina pectoris; E78.5 Hyperlipidemia, unspecified; E66.9 Obesity, unspecified; E11.42 Type 2 diabetes mellitus with diabetic polyneuropathy; Z95.1 Presence of aortocoronary bypass graft; Z86.73 Personal history of transient ischemic attack (TIA), and cerebral infarction without residual deficits; Z68.37 Body mass index [BMI] 37.0-37.9, adult; Y83.5 Amputation of limb(s) as the cause of abnormal reaction of the patient, or of later complication, without mention of misadventure at the time of the procedure ==

== ENCOUNTER → 2017-06-14 | Outpatient (CLI) | payer BC | LOC: HYPER 06-07 06:35 | DX: T87.89 Other complications of amputation stump (principal); T81.31XD Disruption of external operation (surgical) wound, not elsewhere classified, subsequent encounter; E11.621 Type 2 diabetes mellitus with foot ulcer; L97.821 Non-pressure chronic ulcer of other part of left lower leg limited to breakdown of skin; L89.892 Pressure ulcer of other site, stage 2; E11.40 Type 2 diabetes mellitus with diabetic neuropathy, unspecified; E11.51 Type 2 diabetes mellitus with diabetic peripheral angiopathy without gangrene; I25.10 Atherosclerotic heart disease of native coronary artery without angina pectoris; E78.5 Hyperlipidemia, unspecified; Z86.73 Personal history of transient ischemic attack (TIA), and cerebral infarction without residual deficits; Z89.512 Acquired absence of left leg below knee; Z95.1 Presence of aortocoronary bypass graft; Y83.5 Amputation of limb(s) as the cause of abnormal reaction of the patient, or of later complication, without mention of misadventure at the time of the procedure; Y83.8 Other surgical procedures as the cause of abnormal reaction of the patient, or of later complication, without mention of misadventure at the time of the procedure ==

== ENCOUNTER → 2017-06-18 | Outpatient (CLI) | payer BC | LOC: HYPER 09:53 | DX: T81.31XD Disruption of external operation (surgical) wound, not elsewhere classified, subsequent encounter (principal); E11.621 Type 2 diabetes mellitus with foot ulcer; L97.511 Non-pressure chronic ulcer of other part of right foot limited to breakdown of skin; E11.40 Type 2 diabetes mellitus with diabetic neuropathy, unspecified; E11.51 Type 2 diabetes mellitus with diabetic peripheral angiopathy without gangrene; I25.10 Atherosclerotic heart disease of native coronary artery without angina pectoris; E78.5 Hyperlipidemia, unspecified; Z86.73 Personal history of transient ischemic attack (TIA), and cerebral infarction without residual deficits; E66.9 Obesity, unspecified; Z68.37 Body mass index [BMI] 37.0-37.9, adult; Z95.1 Presence of aortocoronary bypass graft; Z89.421 Acquired absence of other right toe(s); Y83.8 Other surgical procedures as the cause of abnormal reaction of the patient, or of later complication, without mention of misadventure at the time of the procedure ==

== ENCOUNTER → 2017-06-22 | Outpatient (CLI) | payer BC | LOC: HYPER 08:09 | DX: T81.31XD Disruption of external operation (surgical) wound, not elsewhere classified, subsequent encounter (principal); E11.621 Type 2 diabetes mellitus with foot ulcer; L97.511 Non-pressure chronic ulcer of other part of right foot limited to breakdown of skin; E11.40 Type 2 diabetes mellitus with diabetic neuropathy, unspecified; E11.51 Type 2 diabetes mellitus with diabetic peripheral angiopathy without gangrene; I25.10 Atherosclerotic heart disease of native coronary artery without angina pectoris; E78.5 Hyperlipidemia, unspecified; E66.9 Obesity, unspecified; Z68.37 Body mass index [BMI] 37.0-37.9, adult; Z95.1 Presence of aortocoronary bypass graft; Z89.421 Acquired absence of other right toe(s); Z89.512 Acquired absence of left leg below knee; Z86.73 Personal history of transient ischemic attack (TIA), and cerebral infarction without residual deficits; Y83.8 Other surgical procedures as the cause of abnormal reaction of the patient, or of later complication, without mention of misadventure at the time of the procedure ==

== ENCOUNTER 2017-06-27 05:21 | Day surgery (SDC) | payer BC ==
[~2017-06-27] VITALS: Ht 177.8 cm; Wt 127.0 kg
--- NOTE | ~2017-06-27 | S ---
[facility] [place] [address] [place] [address] SURGICAL PATH RPT PROCEDURE Name: EDWIN DAVIS III Room #: DEP [facility] M.R.#: [id number] Admission: 06/27/17 Date of : 51 Discharge: 06/27/17 Report #: [id number] Path Case #: [id number] PATHOLOGY REPORT COLLECTION DATE: 06/27/2017 RECEIVED DATE: 06/27/2017 SUBMITTING PHYS: Dr. Lauren Garvey OTHER PHYS: SPECIMEN(S) RECEIVED: A.Right 5th metatarsal * * * * * * * * * * * * FINAL DIAGNOSIS: Bone, right 5th toe metatarsal, amputation: - Ulceration associated with marked acute inflammation extending into underlying bone, leading to osteomyelitis. - Bone margin unremarkable and viable. (IUV:rlm; 06/28/2017) PATHOLOGIST: Mar Chen M.D. REPORT ELECTRONICALLY SIGNED BY: Mar Chen M.D. DATE/TIME: 06/28/2017 14:28 * * * * * * * * * * * * GROSS PATHOLOGY: The specimen is received in formalin, labeled "Edwin Davis, right fifth toe," and consists of a segment of bone with attached soft tissue measuring 3.5 x 2.1 x 1.4 cm. One end of the bone is flat, smooth, and inked black. The other end is rough and convex. A patient representative longitudinal section is submitted following decalcification in cassette A1. (SDY; 06/27/2017) CLINICAL HISTORY: Osteomyelitis right foot INITIAL CPT CODE(S): A; 69934, 11040 Professional services performed by [facility] at [facility] [address], [place] [address] Technical services performed by [facility] at [address] [place] [id number]. [facility] [address] [place] [address] SURGICAL PATH RPT PROCEDURE Name: EDWIN DAVIS III Room #: DEP [facility] Pranay#: [id number] Admission: 06/27/17 Date of : 51 Discharge: 06/27/17 Report #: [id number] Path Case #: [id number] [facility] [address] [address] PHONE: [phone] DIRECTOR: Manny Plascencia M.D. * * * END OF REPORT * * *
[~2017-06-27 05:21] MED LIST changes: -NORTRIPTYLINE H75 M2 PO; -OXYCODONE HCL10 MG PO
[2017-06-27 07:15] VITALS: BP 107/64
[2017-06-27 07:18] LABS: HEMATOCRIT 34.2 % (42.0-52.0); HEMOGLOBIN 11.2 gm/dL (14.0-18.0); MCH 24.9 pg (26.0-34.0); MCHC 32.7 g/dL (28.0-37.0); MCV 76.3 fL (80.0-100.0); RBC 4.48 mil/uL (4.50-6.00); WBC 9.7 thou/uL (4.0-11.0)
[2017-06-27 07:45] LABS: CALCIUM 9.2 mg/dL (8.5-10.1); CREATININE 1.3 mg/dL (0.7-1.3); POTASSIUM 4.2 mmol/L (3.5-5.1)
[2017-06-27 08:55] VITALS: BP 107/64
[2017-07-11] MEDS ORDERED: OXYCODONE HCL10 MG PO (10:14)
[2017-07-11] MEDS ORDERED: NEURONTIN 300300 M1 PO (10:19)
[2017-07-11] MEDS ORDERED: ROXICODONE5 MG PO (10:19)
[2017-07-11] MEDS ORDERED: NORTRIPTYLINE H75 M1 PO (10:19)
[2017-10-16] MEDS ORDERED: NEURONTIN 300300 M1 PO (13:12)
[2017-10-16] MEDS ORDERED: NORTRIPTYLINE H75 M2 PO (13:12)
[2017-10-16] MEDS ORDERED: ROXICODONE5 MG PO (13:12)
[2018-02-05] MEDS ORDERED: ROXICODONE5 MG PO (09:06)
[2018-02-05] MEDS ORDERED: NORTRIPTYLINE H75 M2 PO (09:06)
[2018-02-05] MEDS ORDERED: NEURONTIN 300300 M1 PO (09:06)
== END 2017-06-27 10:00 | disposition home or self-care (01) ==
LOC: OR 05:21 → TBA 05:21 → OR 10:00
PROVIDERS: Podiatrist Foot & Ankle Surgery
DX: M86.171 Other acute osteomyelitis, right ankle and foot (principal); L97.514 Non-pressure chronic ulcer of other part of right foot with necrosis of bone; E11.69 Type 2 diabetes mellitus with other specified complication; I25.2 Old myocardial infarction; I73.89 Other specified peripheral vascular diseases; D64.9 Anemia, unspecified; E78.5 Hyperlipidemia, unspecified; Z98.890 Other specified postprocedural states; Z95.1 Presence of aortocoronary bypass graft; Z86.73 Personal history of transient ischemic attack (TIA), and cerebral infarction without residual deficits; Z95.5 Presence of coronary angioplasty implant and graft; Z79.82 Long term (current) use of aspirin; Z79.899 Other long term (current) drug therapy; Z79.891 Long term (current) use of opiate analgesic
CPT/HCPCS: 50010; 50101; 50386; 50951; 56525; 56528; 57091; 62110; 62900; 70005

== ENCOUNTER → 2017-07-02 | Outpatient (CLI) | payer BC ==
[~2017-07-02] MED LIST changes: +NORTRIPTYLINE H75 M2 PO; +OXYCODONE HCL10 MG PO
== END ==
LOC: HYPER 06:44
DX: T81.31XD Disruption of external operation (surgical) wound, not elsewhere classified, subsequent encounter (principal); E11.40 Type 2 diabetes mellitus with diabetic neuropathy, unspecified; E11.51 Type 2 diabetes mellitus with diabetic peripheral angiopathy without gangrene; I25.10 Atherosclerotic heart disease of native coronary artery without angina pectoris; E78.5 Hyperlipidemia, unspecified; L84 Corns and callosities; Z86.73 Personal history of transient ischemic attack (TIA), and cerebral infarction without residual deficits; Z89.421 Acquired absence of other right toe(s); Z89.512 Acquired absence of left leg below knee; Z95.1 Presence of aortocoronary bypass graft; Y83.8 Other surgical procedures as the cause of abnormal reaction of the patient, or of later complication, without mention of misadventure at the time of the procedure

== ENCOUNTER → 2017-07-11 | Outpatient (CLI) | payer BC ==
[~2017-07-11] VITALS: Ht 177.8 cm; Wt 125.6 kg
--- NOTE | ~2017-07-11 | HPC ---
[facility] [address] [address] PAIN MANAGEMENT CONSULTATION Name: EDWIN DAVIS III [facility] [id number] Admission: 07/11/17 Attend Phys: Edwin Maciel DO Discharge: Date of : 53 Report #: [id number] THIS REPORT FOR: //name// CC: FAM physician/PCP Edwin MAYES DATE OF SERVICE: 07/11/2017 REFERRING PHYSICIAN: Noe Mayes MD. CHIEF COMPLAINT: Bilateral upper extremity pain secondary to iatrogenic brachial plexopathy and right foot pain status post surgery. HISTORY OF PRESENT ILLNESS: As you know, the patient is a 62-year-old male who returns today in followup visit for medication management. He states his medications are working well for pain control. He does provide information about a recent hospitalization for infection of the right foot, which led to staged surgeries and ultimately an amputation of the lateral portion of the metatarsal area and fifth digit. The patient is experiencing increased pain from that area, but also has continued to experience his typical bilateral upper extremity brachial plexopathy pain. He returns today in followup visit requesting refills of medications. He is denying any side effects with their use. He is using the medications appropriately. He has not called for early refills. ALLERGIES: PENICILLIN. CURRENT MEDICATIONS: Include Senokot, oxycodone, gabapentin, cefepime, Movantik Zontivity, fenofibrate, Trulicity, cholecalciferol, ferrous sulfate, ramipril, nortriptyline, Plavix, furosemide, docusate sodium, aspirin, insulin, metformin, atorvastatin and zolpidem. SOCIAL HISTORY: The patient denies tobacco, alcohol, IV or illicit drug use. He is working, not receiving workmen's compensation, unaccompanied today. IMAGING: No new imaging available. PQRS: The patient has no applicable osteoarthritis or rheumatoid arthritis. His pain intensity today 5/10. He is not a fall risk. He has not had a fall in the past 3 months. He is using a cane at present due to changes in his right foot, status post surgery. He is on blood thinners in the form of Plavix. He is not treated for hypertension. He has been on opioids greater than 6 months. He signed a contract with [facility] again today. Risk assessment tool for opioid abuse low. Functional assessment tool shows a pain impact score 26/70. [address] [address] PAIN MANAGEMENT CONSULTATION Name: EDWIN DAVIS [facility] Room #: REG [facility] Pires#: [id number] Admission: 07/11/17 Attend Phys: Edwin Maciel DO Discharge: Date of : 51 Report #: [id number] PHYSICAL EXAMINATION: VITAL SIGNS: Blood pressure 127/53, pulse is 108, respiratory rate 18, unlabored. The patient is 97% on room air. Height 5 feet 10 inches tall, weight 277 pounds, BMI calculated 39.7. GENERAL: Well-developed, well-nourished, well-hydrated exogenously obese 62-year-old male, appearing stated age, placing current pain score 5/10. HEENT: Normocephalic, atraumatic. Pupils equal, round, reactive to light. Extraocular muscles are intact. Speech fluent. LUNGS: Clear, no wheeze, rhonchi or rales. CARDIOVASCULAR: Regular. No appreciable gallop or rub. ABDOMEN: Soft, obese, nontender, nondistended. EXTREMITIES: Show no clubbing, no cyanosis. There are noted changes surgically in the right foot that appear to be healing well. Gait is antalgic favoring left lower extremity over right. He does have decreased tactile sensation again on the C8 dermatome in the upper extremities bilaterally. ASSESSMENT: 1. Bilateral iatrogenic brachial plexopathy. 2. Peripheral neuropathy. 3. Right foot pain status post surgery. 4. Chronic intractable pain. PLAN: 1. The patient returns today in followup visit for continuation of medication therapy. The patient feels medications are working beneficially for pain control. The patient, as you are aware, travels extensively for his job. He is planning trips to [facility] and again back to [place] over the next couple of months. He has requested refills to be provided today for the next 3 months. He does feel medications are working well despite his slightly elevated pain level today. Overall, the patient states doing his daily activities without significant pain interference. He has returned requesting refill on medication. 2. The patient was provided prescription, nortriptyline 75 mg dose 1 tab p.o. at bedtime. I have given the patient #30, three months' worth of medication. 3. The patient was provided prescription of gabapentin 300 mg dose. He is taking 900 mg morning and 1500 mg at night, #240 tablets, 2 refills, 3 months' worth of medication. 4. The patient was provided prescription of oxycodone 5 mg dose 1 tab p.o. q.6 hours p.r.n. for pain, #120, releases of today, 4 weeks from today, 8 weeks from today, 3 months' worth of medication. 5. We will see the patient back in followup visit in 3 months for medication management and to make any adjustments necessary to address ongoing pain. <ELECTRONICALLY SIGNED> By: Edwin Maciel DO 07/18/17 0715 0728 8 Edwin Maciel DO /darien
[2017-07-11 09:59] VITALS: BP 127/53
== END ==
LOC: PAIN 06:41
DX: G54.0 Brachial plexus disorders (principal); G62.9 Polyneuropathy, unspecified; G89.29 Other chronic pain; M79.671 Pain in right foot; Z88.0 Allergy status to penicillin

== ENCOUNTER → 2017-07-12 | Outpatient (CLI) | payer BC | LOC: HYPER 07-09 06:59 | DX: T81.31XD Disruption of external operation (surgical) wound, not elsewhere classified, subsequent encounter (principal); E11.621 Type 2 diabetes mellitus with foot ulcer; L97.511 Non-pressure chronic ulcer of other part of right foot limited to breakdown of skin; E11.40 Type 2 diabetes mellitus with diabetic neuropathy, unspecified; E11.51 Type 2 diabetes mellitus with diabetic peripheral angiopathy without gangrene; E11.69 Type 2 diabetes mellitus with other specified complication; I25.10 Atherosclerotic heart disease of native coronary artery without angina pectoris; E78.5 Hyperlipidemia, unspecified; Z86.73 Personal history of transient ischemic attack (TIA), and cerebral infarction without residual deficits; E66.9 Obesity, unspecified; Z68.37 Body mass index [BMI] 37.0-37.9, adult; Z95.1 Presence of aortocoronary bypass graft; Z89.421 Acquired absence of other right toe(s); Z89.512 Acquired absence of left leg below knee; Y83.8 Other surgical procedures as the cause of abnormal reaction of the patient, or of later complication, without mention of misadventure at the time of the procedure ==

== ENCOUNTER → 2017-07-16 | Outpatient (CLI) | payer BC | LOC: HYPER 06:52 | DX: T81.31XD Disruption of external operation (surgical) wound, not elsewhere classified, subsequent encounter (principal); E11.621 Type 2 diabetes mellitus with foot ulcer; L97.511 Non-pressure chronic ulcer of other part of right foot limited to breakdown of skin; E11.40 Type 2 diabetes mellitus with diabetic neuropathy, unspecified; E11.51 Type 2 diabetes mellitus with diabetic peripheral angiopathy without gangrene; I25.10 Atherosclerotic heart disease of native coronary artery without angina pectoris; E78.4 Other hyperlipidemia; E66.9 Obesity, unspecified; Z86.73 Personal history of transient ischemic attack (TIA), and cerebral infarction without residual deficits; Z95.1 Presence of aortocoronary bypass graft; Z89.512 Acquired absence of left leg below knee; Z68.37 Body mass index [BMI] 37.0-37.9, adult; Y83.8 Other surgical procedures as the cause of abnormal reaction of the patient, or of later complication, without mention of misadventure at the time of the procedure ==

== ENCOUNTER 2017-07-28 09:52 | Inpatient (IN) | payer BC ==
[~2017-07-28] VITALS: Ht 177.8 cm; Wt 122.5 kg
--- NOTE | ~2017-07-28 | HC ---
[facility] [place] [address] CONSULTATION Name: SUSANEDWIN MERCADO III Room #: 437-P ADM IN M.R.#: [id number] Admission: 07/28/17 Attend Phys: Man Koch MD Discharge: Date of : 51 Report #: [id number] THIS REPORT FOR: //name// CC: Man Koch [facility] physician/PCP DATE OF SERVICE: 07/28/2017 REASON FOR CONSULTATION: I was asked to evaluate the patient concerning right lower extremity cellulitis. HISTORY OF PRESENT ILLNESS: The patient is a 62-year-old who had been caring for over the past several months for osteomyelitis of his right fifth metatarsal as a complication of peripheral vascular disease and diabetes. He has had peripheral arterial stenting. He then underwent toe amputation followed by a further ray amputation. He had been on a prolonged course of IV antibiotic therapy. Cultures had revealed group B streptococcus as well as fully susceptible Pseudomonas aeruginosa. He had approximately 8 weeks of IV antibiotic therapy for his ray amputation. He then followed up with 22 days of cefepime postop from that procedure. He was seen in the outpatient clinic on 07/19/2017, where we discontinued his IV antibiotic therapy and placed him on Levaquin. He reports being on this program faithfully up until his current admission. On that date, his hemoglobin was 9.9, WBC 7.6, platelet count 219,000. Creatinine 0.9. Liver function test normal. Sedimentation rate was still 96 with CRP of 30. X-rays performed on that date showed a clean amputation margin of the proximal fifth metatarsal. It is also noted that on 06/27/2017, the time of his ray amputation, cultures only revealed a few diphtheroids. Over the past 4 days, he has had increased erythema and swelling in the right lower extremity. He had been on his leg much more than he had in the past, although he states just going to work in around town. Blood sugar control has been fair. No weight loss. Denies any fever, chills or sweats. Just noticed increased erythema and pain in his right pretibial skin. No nausea, vomiting, or diarrhea. ALLERGIES: None known. MEDICATIONS: As noted on his MAR including Levaquin. PAST MEDICAL HISTORY, FAMILY HISTORY AND SOCIAL HISTORY: Unchanged from his previous consultation. REVIEW OF SYSTEMS: As noted above with no additions. PHYSICAL EXAMINATION: VITAL SIGNS: He was afebrile, hemodynamically stable. Alert and cooperative. He is in no acute distress. [facility] [address] [place] [address] CONSULTATION Name: EDWIN DAVIS [facility] Room #: 437-P [facility] IN M.R.#: [id number] Admission: 07/28/17 Attend Phys: Man Koch MD Discharge: Date of : 53 Report #: [id number] HEENT: Unremarkable. He was tanned. CHEST: Clear. HEART: Regular. ABDOMEN: Obese, soft. EXTREMITIES: Right lower extremity had 2+ edema in the lower leg. He had cellulitic changes from the ankle up to the mid-calf region, mostly over the pretibial skin. This was exquisitely tender. Right lateral foot incision was well approximated. He had mild bruising to the lateral aspect of his foot with no erythema or fluctuance. No breakdown of his incision line. He had decreased sensation in the foot. Pulses were palpable. LABORATORY STUDIES: Sodium 139, potassium 4, bicarbonate 31, creatinine 1.4. Liver function test normal. C-reactive protein 37. WBC 7.2, hemoglobin 9.8, platelet count 265,000. Sedimentation rate 110. Blood cultures are pending. Chest x-ray: Cardiomegaly with small pleural effusions. X-ray of the right foot shows periosteal reaction of the fifth metatarsal amputation site. Ultrasound venous: No evidence of DVT. Ultrasound arterial: No evidence of significant lower extremity arterial occlusion. IMPRESSION: A 62-year-old diabetic peripheral vascular disease with recent right fifth ray amputation, now with recurrent cellulitis. Concern was his sedimentation rate, which had not dropped below 90 postoperatively. I have been dealing with this for some time now. Despite further surgical debridement, sed rate remains elevated without any other significant complaints. He has had no cardiopulmonary issues or genitourinary tract issues. His sedimentation rate had normalized previously. I am concerned that we are still dealing with deep seated infection in the foot. Therefore, I kept him on oral antibiotic therapy with Levaquin. Despite this, he has broken through now more with a streptococcal looking infection. I would recommend that we go back to cefepime and re-image the right foot to ensure we do not have a fluid collection there. Otherwise, we may go with cephalexin as our preventative therapy going forward considering the ray amputation cultures were negative for any evidence of pseudomonas and for today, we will also continue with leg elevation and try to get some of the edema down. He will need blood glucose control and we will proceed from there. <ELECTRONICALLY SIGNED> By: Boni Dan MD 07/29/17 1749 [id number] Boni Dan MD /nt
--- NOTE | ~2017-07-28 | H ---
[facility] [place] [address] HISTORY AND PHYSICAL Name: SUSANEDWIN MERCADO III Room #: 437-P [facility] IN M.R.#: [id number] Admission: 07/28/17 Attend Phys: Man Koch MD Discharge: 08/01/17 Date of : 51 Report #: [id number] THIS REPORT FOR: //name// CC: Man Koch [facility] physician/PCP DATE OF SERVICE: 07/28/2017 REASON FOR PRESENTATION: Right lower extremity swelling. HISTORY OF PRESENT ILLNESS: Very nice but unfortunate 62-year-old with extensive past medical history including hypertension, hyperlipidemia, coronary artery disease post-CABG, peripheral arterial disease with some intervention including stents on his right lower extremity, status post left BKA. He had right fifth toe amputation back on 06/27/2017 and was followed by the Wound Care. He communicated with his Wound Care because of worsening right lower extremity swelling, increased warmth, increased redness. He had been receiving antibiotics and followed by Dr. Dan as an outpatient. PICC line was removed and he was switched to p.o. antibiotic. However, because of the worsening of his symptoms, he presented for further evaluation and management where he was found to have extensive cellulitis extending all the way to below the knee. Of note is the fact that the patient has had saphenous vein graft on the right side. Because of the presenting symptoms, he was admitted for further evaluation and management to rule out osteomyelitis and to be treated with intravenous antibiotic. PAST MEDICAL HISTORY: 1. Diabetes mellitus. 2. Hypertension. 3. Status post left below-knee amputation. 4. Prior stroke. 5. Peripheral arterial disease with multiple stents. 6. Peripheral neuropathy. 7. Obstructive sleep apnea. 8. Hyperlipidemia. FAMILY HISTORY: Significant for diabetes mellitus. SOCIAL HISTORY: Nonsmoker. No drug or alcohol abuse. 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 PAST SURGICAL HISTORY: 1. Coronary artery bypass graft. 2. Left below-knee amputation. MEDICATIONS: The patient is currently maintained on the following medications: 1. Plavix. [address] [address] HISTORY AND PHYSICAL Name: EDWIN DAVIS [facility] Room #: 437-[facility] IN M.R.#: [id number] Admission: 07/28/17 Attend Phys: Man Koch MD Discharge: 08/01/17 Date of : 51 Report #: [id number] 2. Fenofibrate. 3. Atorvastatin. 4. Aspirin. 5. Oxycodone. 6. Gabapentin. 7. Lasix. 8. Metformin. 9. Lantus. 10. Zontivity. 11. Ramipril. 12. Trulicity. REVIEW OF SYSTEMS: GENERAL: No fever or chills. CARDIOVASCULAR: No chest pain or palpitation. PULMONARY: No cough or hemoptysis. GASTROINTESTINAL: No nausea or vomiting. GENITOURINARY: No frequency, no urgency. MUSCULOSKELETAL: As per the history of present illness. PHYSICAL EXAMINATION: GENERAL: Alert, oriented, in no apparent distress. VITAL SIGNS: Blood pressure is 117/66, pulse rate is 88, respiratory rate is 18. HEAD AND NECK: No jugular venous distention, no bruit, no thyromegaly. CHEST: Clear to auscultation bilaterally. CARDIOVASCULAR: Regular with no rub detected. ABDOMEN: Soft, nontender with no hepatosplenomegaly. LOWER EXTREMITIES: BKA on the left side. Right side missing right fifth toe. There is an extensive cellulitis involving the calf all the way up to below the knee area. LABORATORY DATA: Reviewed. Hemoglobin 9.8 with a low MCV. Chemistry revealed BUN of 23 and a creatinine of 1.4. Blood sugar is mildly elevated at 163. C-reactive protein is elevated at 37.6. ASSESSMENT, IMPRESSION AND PLAN: 1. Right lower extremity cellulitis. 2. Extensive peripheral arterial disease. 3. Diabetes mellitus. 4. Hypertension. 5. Chronic kidney disease. 6. Admission. 7. Cultures obtained. 8. ID consultation to resume cefepime. 9. Resume blood pressure medications. [address] [address] HISTORY AND PHYSICAL Name: EDWIN DAVIS [facility] Room #: 437-P [facility] IN M.R.#: [id number] Admission: 07/28/17 Attend Phys: Man Koch MD Discharge: 08/01/17 Date of : 53 Report #: [id number] 10. Resume blood sugar medications. 11. Podiatry to see. 12. MRI of the lower extremity to rule out osteomyelitis. 13. Wound care. 14. We will continue to follow along. <ELECTRONICALLY SIGNED> By: Man Koch MD 08/20/17 0848 1337 21 Man Koch MD /nt
--- NOTE | ~2017-07-28 | HC ---
[facility] [place] [address] CONSULTATION Name: BRANDONASHUEDWIN MERCADO [facility] Room #: 437-P ADM IN M.R.#: [id number] Admission: 07/28/17 Attend Phys: Man Koch MD Discharge: Date of : 53 Report #: [id number] THIS REPORT FOR: //name// CC: Man Koch [facility] physician/PCP DATE OF SERVICE: 07/30/2017 CHIEF COMPLAINT: Cellulitis, right lower extremity. HISTORY OF PRESENT ILLNESS: This is a 62-year-old white male patient with whom I am very familiar, who has had a previous left below-knee amputation and recent nonhealing ulceration of his right foot. He has undergone status post fifth ray amputation and right partial fifth metatarsal amputation with primary closure. He was admitted through the Emergency Department with cellulitis of his right leg, but not involving his foot. He denies pain or fever at this time. PAST MEDICAL HISTORY: Once again is positive for diabetes mellitus, history of osteomyelitis of the right fifth metatarsal and peripheral arterial disease, status post stenting and long course of antibiotic therapy. Past medical history is unchanged from previous consultation. ALLERGIES: None. MEDICATIONS: Noted on his MAR. REVIEW OF SYSTEMS: CONSTITUTIONAL: The patient denies fever, chills or weight loss. NEUROLOGIC: The patient denies focal weakness, numbness or tingling. EYES: The patient denies visual changes, redness or drainage. ENT: The patient denies earache, nasal drainage or sore throat. CARDIOVASCULAR: The patient denies chest pain, palpitations or diaphoresis. PULMONARY: The patient denies cough or shortness of breath. GASTROINTESTINAL: The patient denies nausea, vomiting, diarrhea or abdominal pain. ORTHOPEDIC: The patient is aware of the erythema of his right leg. Other systems in a 14-point review of systems are negative. PHYSICAL EXAMINATION: VITAL SIGNS: At this time include pulse rate 86, respiratory rate of 19, blood pressure 113/69 and temperature 97.8. GENERAL: This is a chronically ill-appearing male patient who appears to be in minimal distress. HEENT: Examination of the head, normocephalic. Nose and throat are clear. NECK: Supple. LUNGS: Clear. [facility] [address] [place] [address] CONSULTATION Name: EDWIN DAVIS [facility] Room #: 437-P [facility] IN M.R.#: [id number] Admission: 07/28/17 Attend Phys: Man Koch MD Discharge: Date of : 53 Report #: [id number] HEART: Regular rate and rhythm. ABDOMEN: Soft. Bowel sounds present. EXTREMITIES: Examination of the lower extremities demonstrates left BKA. His prosthesis is left in place. Right leg demonstrates erythema of the mid calf area. It is mildly warm to palpation. The foot is dry, stable, intact and not erythematous and there is no drainage. CLINICAL IMPRESSION: 1. Cellulitis, left lower extremity. 2. Diabetes mellitus. 3. Peripheral neuropathy secondary to diabetes mellitus. RECOMMENDATIONS: At this point in time, the patient is receiving intravenous antibiotic therapy. I do not think we need any specific dressing on the right foot as there is nothing open at this time. I think elevation of the leg would be appropriate. Continue all medications and aggressive nutritional support. I appreciate being asked to see him again in consultation. <ELECTRONICALLY SIGNED> By: Aldair Kaur MD 07/31/17 0703 [id number] Aldair Kaur MD /nt
--- NOTE | ~2017-07-28 | HC ---
[facility] [place] [address] CONSULTATION Name: SUSANEDWIN MERCADO III Room #: 437-P ADM IN M.R.#: [id number] Admission: 07/28/17 Attend Phys: Man Koch MD Discharge: Date of : 53 Report #: [id number] THIS REPORT FOR: //name// CC: Man Koch HISTORY OF PRESENT ILLNESS: The patient is a 62-year-old diabetic male with a history of CAD, extensive PVD and neuropathy with a history of a left below knee amputation. Over the last few months, he has had complications of the right foot with osteomyelitis of the right fifth metatarsal. He had recently had sutures removed a few weeks ago with the incision well healed with no issues to the right foot. He is followed closely by Dr. Dan who had switched him to an oral antibiotic recently. He presented for evaluation yesterday for redness and swelling to his right lower extremity with cellulitis, more to his leg. He was admitted for IV antibiotics and further workup. He denies any fever, chills, nausea or vomiting. LOWER EXTREMITY PHYSICAL EXAMINATION: Left below knee amputation. Right lower extremity with 2+ edema. He has cellulitic changes with venous insuff/hyperemia along his pretibial skin. There is some tenderness in this area with tautness, but with no breaks in the skin. He has got some light bruising along the lateral midfoot on the right, but with no breakdown of the incision. No signs of infection noted to right foot or ankle. There is no focal tenderness to the right foot or ankle. Light touch sensation absent to the right foot. CFT is within normal limits to the distal stump site and present toes. There are no areas of obvious abscess or fluctuance. IMPRESSION: A 62-year-old diabetic male with peripheral vascular disease and neuropathy with a history of a left below knee amputation and a recent right fifth ray amputation, now with some new right lower extremity cellulitis. His ESR is elevated at 110 and his CRP is at 37. He has no leukocytosis. His x-rays completed yesterday do show some bone changes to the proximal shaft of the fifth metatarsal, but I feel this is more consistent with likely Charcot changes as he has been on his right foot more recently over the last few weeks without a custom shoe and insole. He had x-rays taken a few weeks ago postoperatively, without any changes to the bone noted. PLAN: We are pending an MRI to further workup the cellulitis and he is responding well to his right leg cellulitis with IV antibiotics. He is being followed closely by Dr. Dan, and insurance marketing specialist, [place] [address] CONSULTATION Name: EDWIN DAVIS [facility] Room #: 437-P [facility] IN M.R.#: [id number] Admission: 07/28/17 Attend Phys: Man Koch MD Discharge: Date of : 53 Report #: [id number] Natasha. I will follow him closely with discharge, as an outpatient. He does need some compression to his right lower extremity, which he has not had recently, although this needs to be closely followed with his arterial and venous insufficiency and history of revascularization. In addition, he should not bear any weight to his right foot until he obtains his custom shoe and insole. I discussed this with the patient and in great detail. I answered all their questions and concerns. <ELECTRONICALLY SIGNED> By: Lauren Garvey DPM 07/30/17 1307 1331 [id number] Lauren Garvey DPM /nt
[~2017-07-28 09:52] MED LIST changes: -NORTRIPTYLINE H75 M2 PO
[2017-07-28 09:53] VITALS: BP 90/60
[2017-07-28 10:45] LABS: ABSOLUTE NEUTROPHILS 4.7 thou/uL (1.4-8.2); BASOPHILS 0.8 % (0.0-2.0); EOSINOPHILS 3.7 % (0.0-3.0); HEMATOCRIT 30.1 % (42.0-52.0); HEMOGLOBIN 9.8 gm/dL (14.0-18.0); LYMPHOCYTES 23.5 % (24.0-44.0); MCHC 32.7 g/dL (28.0-37.0); MCV 76.4 fL (80.0-100.0); MONOCYTES 6.7 % (1.0-8.0); PLATELET COUNT 265 thou/uL (150-400); POLYS 65.3 % (36.0-66.0); RBC 3.94 mil/uL (4.50-6.00); RDW 17.4 % (10.5-14.5); WBC 7.2 thou/uL (4.0-11.0)
[2017-07-28 10:53] LABS: ANION GAP 7 mmol/L (7-16); BUN 23 mg/dL (7-18); CALCIUM 9.1 mg/dL (8.5-10.1); CHLORIDE 101 mmol/L (98-107); CO2 31 mmol/L (21-32); CREATININE 1.4 mg/dL (0.7-1.3); GLUCOSE 163 mg/dL (74-106); POTASSIUM 4.4 mmol/L (3.5-5.1); SODIUM 139 mmol/L (136-145)
[2017-07-28 10:59] LABS: ALBUMIN 2.5 g/dL (3.4-5.0); DIRECT BILIRUBIN < 0.1 mg/dL (<0.1-0.3); SGOT 17 U/L (15-37); SGPT 19 U/L (30-65); TOTAL BILIRUBIN 0.2 mg/dL (<0.1-1.0)
[2017-07-28 14:20] VITALS: BP 113/66
[2017-07-28 17:24] VITALS: BP 108/47
[2017-07-28 19:29] VITALS: BP 133/68
[2017-07-29 04:20] VITALS: BP 140/69
[2017-07-29 05:18] LABS: HEMOGLOBIN 9.6 gm/dL (14.0-18.0); MCH 25.3 pg (26.0-34.0); MCHC 33.2 g/dL (28.0-37.0); MCV 76.3 fL (80.0-100.0); RBC 3.79 mil/uL (4.50-6.00); RDW 17.6 % (10.5-14.5); WBC 6.5 thou/uL (4.0-11.0)
[2017-07-29 05:36] LABS: ALBUMIN 2.3 g/dL (3.4-5.0); CALCIUM 8.8 mg/dL (8.5-10.1); CREATININE 1.1 mg/dL (0.7-1.3); POTASSIUM 4.1 mmol/L (3.5-5.1); TOTAL BILIRUBIN 0.2 mg/dL (<0.1-1.0); TOTAL PROTEIN 6.6 g/dL (6.4-8.2)
[2017-07-29 08:00] VITALS: BP 128/82; BP 133/75
[2017-07-29 16:00] VITALS: BP 114/58
[2017-07-29 19:42] VITALS: BP 119/61
[2017-07-30 03:57] VITALS: BP 136/72
[2017-07-30 07:12] LABS: HEMATOCRIT 30.7 % (42.0-52.0); MCH 24.8 pg (26.0-34.0); MCHC 32.4 g/dL (28.0-37.0); MCV 76.6 fL (80.0-100.0); RBC 4.02 mil/uL (4.50-6.00); RDW 17.3 % (10.5-14.5); WBC 6.5 thou/uL (4.0-11.0)
[2017-07-30 07:27] LABS: ALBUMIN 2.3 g/dL (3.4-5.0); CALCIUM 8.7 mg/dL (8.5-10.1); CREATININE 1.1 mg/dL (0.7-1.3); PHOSPHORUS 4.3 mg/dL (2.5-4.9); POTASSIUM 3.6 mmol/L (3.5-5.1)
[2017-07-30 07:40] VITALS: BP 114/62
[2017-07-30 16:12] VITALS: BP 113/69
[2017-07-30 20:11] VITALS: BP 114/51
[2017-07-31 03:30] VITALS: BP 128/59
[2017-07-31 08:34] VITALS: BP 120/65
[2017-07-31 16:02] VITALS: BP 122/73
[2017-07-31 19:27] VITALS: BP 107/68
[2017-07-31] MEDS ORDERED: NORTRIPTYLINE H25 M3 PO ×3 (20:56→22:20)
[2017-08-01 04:17] VITALS: BP 172/76
[2017-08-01 07:20] VITALS: BP 118/85
[2017-08-01] MEDS ORDERED: KEFLEX500 M1 PO (11:56)
[2017-08-01 12:09] VITALS: BP 118/85
[2017-10-16] MEDS ORDERED: ROXICODONE5 MG PO (13:12)
[2017-10-16] MEDS ORDERED: NORTRIPTYLINE H75 M2 PO (13:12)
[2017-10-16] MEDS ORDERED: NEURONTIN 300300 M1 PO (13:12)
[2018-02-05] MEDS ORDERED: NORTRIPTYLINE H75 M2 PO (09:06)
[2018-02-05] MEDS ORDERED: ROXICODONE5 MG PO (09:06)
[2018-02-05] MEDS ORDERED: NEURONTIN 300300 M1 PO (09:06)
== END 2017-08-01 14:08 | disposition home or self-care (01) | DRG 603 ==
LOC: ER 09:52 → EROBS 12:38 → 4S 12:38 → ENTRNSPT 08-01 12:51 → EDTRNSPTSTS 08-01 12:54 → 4S 08-01 14:08
PROVIDERS: Hospitalist; Nurse Practitioner
DX: L03.115 Cellulitis of right lower limb (principal); E11.51 Type 2 diabetes mellitus with diabetic peripheral angiopathy without gangrene; E78.5 Hyperlipidemia, unspecified; N18.9 Chronic kidney disease, unspecified; D64.9 Anemia, unspecified; I87.8 Other specified disorders of veins; E11.22 Type 2 diabetes mellitus with diabetic chronic kidney disease; I12.9 Hypertensive chronic kidney disease with stage 1 through stage 4 chronic kidney disease, or unspecified chronic kidney disease; I25.10 Atherosclerotic heart disease of native coronary artery without angina pectoris; G47.33 Obstructive sleep apnea (adult) (pediatric); E11.42 Type 2 diabetes mellitus with diabetic polyneuropathy; Z95.5 Presence of coronary angioplasty implant and graft; Z86.73 Personal history of transient ischemic attack (TIA), and cerebral infarction without residual deficits; Z95.1 Presence of aortocoronary bypass graft; I25.2 Old myocardial infarction; Z89.512 Acquired absence of left leg below knee; Z95.820 Peripheral vascular angioplasty status with implants and grafts; Z89.421 Acquired absence of other right toe(s); Z79.02 Long term (current) use of antithrombotics/antiplatelets; Z79.4 Long term (current) use of insulin; Z79.82 Long term (current) use of aspirin; Z79.84 Long term (current) use of oral hypoglycemic drugs; Z79.899 Other long term (current) drug therapy; Z83.3 Family history of diabetes mellitus
CPT/HCPCS: 10195

== ENCOUNTER → 2017-08-23 | Outpatient (CLI) | payer BC ==
[~2017-08-23] MED LIST changes: +NORTRIPTYLINE H75 M2 PO
== END ==
LOC: HYPER 08-01 09:57
DX: T81.31XD Disruption of external operation (surgical) wound, not elsewhere classified, subsequent encounter (principal); E11.621 Type 2 diabetes mellitus with foot ulcer; L97.511 Non-pressure chronic ulcer of other part of right foot limited to breakdown of skin; E11.40 Type 2 diabetes mellitus with diabetic neuropathy, unspecified; E11.51 Type 2 diabetes mellitus with diabetic peripheral angiopathy without gangrene; Z89.421 Acquired absence of other right toe(s); I25.10 Atherosclerotic heart disease of native coronary artery without angina pectoris; E78.5 Hyperlipidemia, unspecified; E66.9 Obesity, unspecified; Z68.37 Body mass index [BMI] 37.0-37.9, adult; Z86.73 Personal history of transient ischemic attack (TIA), and cerebral infarction without residual deficits; Z95.1 Presence of aortocoronary bypass graft; Y83.8 Other surgical procedures as the cause of abnormal reaction of the patient, or of later complication, without mention of misadventure at the time of the procedure

== ENCOUNTER → 2017-09-06 | Outpatient (CLI) | payer BC ==
[~2017-09-06] MED LIST changes: -NORTRIPTYLINE H75 M2 PO
== END ==
LOC: HYPER 06:52
DX: T81.31XD Disruption of external operation (surgical) wound, not elsewhere classified, subsequent encounter (principal); S90.414D Abrasion, right lesser toe(s), subsequent encounter; E11.40 Type 2 diabetes mellitus with diabetic neuropathy, unspecified; E11.51 Type 2 diabetes mellitus with diabetic peripheral angiopathy without gangrene; L84 Corns and callosities; I25.10 Atherosclerotic heart disease of native coronary artery without angina pectoris; E78.5 Hyperlipidemia, unspecified; E66.9 Obesity, unspecified; Z86.73 Personal history of transient ischemic attack (TIA), and cerebral infarction without residual deficits; Z89.421 Acquired absence of other right toe(s); Z95.1 Presence of aortocoronary bypass graft; Z96.652 Presence of left artificial knee joint; Z68.37 Body mass index [BMI] 37.0-37.9, adult; X58.XXXD Exposure to other specified factors, subsequent encounter; Y83.8 Other surgical procedures as the cause of abnormal reaction of the patient, or of later complication, without mention of misadventure at the time of the procedure

== ENCOUNTER → 2017-09-27 | Outpatient (CLI) | payer BC | LOC: MRI 09-20 06:14 | DX: M86.8X7 Other osteomyelitis, ankle and foot (principal); G63 Polyneuropathy in diseases classified elsewhere ==

== ENCOUNTER → 2017-11-09 | Outpatient (CLI) | payer BC ==
[~2017-11-09] MED LIST changes: +NORTRIPTYLINE H75 M2 PO
== END ==
LOC: HYPER 08:04
DX: T87.89 Other complications of amputation stump (principal); E11.622 Type 2 diabetes mellitus with other skin ulcer; L89.893 Pressure ulcer of other site, stage 3; L97.821 Non-pressure chronic ulcer of other part of left lower leg limited to breakdown of skin; L03.115 Cellulitis of right lower limb; E11.40 Type 2 diabetes mellitus with diabetic neuropathy, unspecified; E11.51 Type 2 diabetes mellitus with diabetic peripheral angiopathy without gangrene; L84 Corns and callosities; I25.10 Atherosclerotic heart disease of native coronary artery without angina pectoris; E78.5 Hyperlipidemia, unspecified; E66.9 Obesity, unspecified; Z89.512 Acquired absence of left leg below knee; Z86.73 Personal history of transient ischemic attack (TIA), and cerebral infarction without residual deficits; Z95.1 Presence of aortocoronary bypass graft; Z68.37 Body mass index [BMI] 37.0-37.9, adult; Y83.5 Amputation of limb(s) as the cause of abnormal reaction of the patient, or of later complication, without mention of misadventure at the time of the procedure

== ENCOUNTER → 2018-01-01 | Outpatient (CLI) | payer BC | LOC: HYPER 12-21 10:47 | DX: T87.89 Other complications of amputation stump (principal); E11.622 Type 2 diabetes mellitus with other skin ulcer; L89.893 Pressure ulcer of other site, stage 3; L97.821 Non-pressure chronic ulcer of other part of left lower leg limited to breakdown of skin; E11.40 Type 2 diabetes mellitus with diabetic neuropathy, unspecified; E11.51 Type 2 diabetes mellitus with diabetic peripheral angiopathy without gangrene; L84 Corns and callosities; I25.10 Atherosclerotic heart disease of native coronary artery without angina pectoris; E78.5 Hyperlipidemia, unspecified; E66.9 Obesity, unspecified; Z89.512 Acquired absence of left leg below knee; Z95.1 Presence of aortocoronary bypass graft; Z86.73 Personal history of transient ischemic attack (TIA), and cerebral infarction without residual deficits; Z68.37 Body mass index [BMI] 37.0-37.9, adult; Y83.5 Amputation of limb(s) as the cause of abnormal reaction of the patient, or of later complication, without mention of misadventure at the time of the procedure ==

== ENCOUNTER → 2018-02-14 | Outpatient (CLI) | payer BC | LOC: HYPER 06:58 | DX: T87.89 Other complications of amputation stump (principal); E11.622 Type 2 diabetes mellitus with other skin ulcer; L97.821 Non-pressure chronic ulcer of other part of left lower leg limited to breakdown of skin; L89.899 Pressure ulcer of other site, unspecified stage; L84 Corns and callosities; E11.51 Type 2 diabetes mellitus with diabetic peripheral angiopathy without gangrene; E11.40 Type 2 diabetes mellitus with diabetic neuropathy, unspecified; E11.69 Type 2 diabetes mellitus with other specified complication; E78.5 Hyperlipidemia, unspecified; E66.9 Obesity, unspecified; I25.10 Atherosclerotic heart disease of native coronary artery without angina pectoris; Z86.73 Personal history of transient ischemic attack (TIA), and cerebral infarction without residual deficits; Z95.1 Presence of aortocoronary bypass graft; Y83.5 Amputation of limb(s) as the cause of abnormal reaction of the patient, or of later complication, without mention of misadventure at the time of the procedure ==

== ENCOUNTER → 2018-04-15 | Outpatient (CLI) | payer BC | LOC: HYPER 07:10 | DX: T87.89 Other complications of amputation stump (principal); E11.622 Type 2 diabetes mellitus with other skin ulcer; L89.899 Pressure ulcer of other site, unspecified stage; L97.821 Non-pressure chronic ulcer of other part of left lower leg limited to breakdown of skin; L84 Corns and callosities; E11.40 Type 2 diabetes mellitus with diabetic neuropathy, unspecified; E11.51 Type 2 diabetes mellitus with diabetic peripheral angiopathy without gangrene; E78.5 Hyperlipidemia, unspecified; E66.9 Obesity, unspecified; I25.10 Atherosclerotic heart disease of native coronary artery without angina pectoris; Z86.73 Personal history of transient ischemic attack (TIA), and cerebral infarction without residual deficits; Z68.37 Body mass index [BMI] 37.0-37.9, adult; Y83.5 Amputation of limb(s) as the cause of abnormal reaction of the patient, or of later complication, without mention of misadventure at the time of the procedure ==

== ENCOUNTER → 2018-04-30 | Outpatient (CLI) | payer BC ==
[~2018-04-30] VITALS: Ht 177.8 cm; Wt 126.4 kg
--- NOTE | ~2018-04-30 | HPC ---
[facility] [address] [place] [address] PAIN MANAGEMENT CONSULTATION Name: EDWIN DAVIS III Room #: REG Ge Pires#: [id number] Admission: 04/30/18 Attend Phys: Latoya Reeves Discharge: Date of : 51 Report #: [id number] THIS REPORT FOR: //name// CC: Latoya KEMP Physician staff DATE OF SERVICE: 04/30/2018 CHIEF COMPLAINT: Bilateral upper extremity pain secondary to brachial plexopathy. HISTORY OF PRESENT ILLNESS: This is a very pleasant 63-year-old gentleman who returns to the pain clinic today for followup for his pain medication refills. 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 His pain score remains 2-3 with his medications. He tells me if he does not take his medications, the tips of his fingers feel like razor blades. He tells me his pain is always there, but it stays pretty constant level at 2-3 with his medications. He finds that they are very helpful. He does also have neuropathy in his feet. He tells me that he recently lost a toenail on the toe and he did not even feel it when it fell off. He did go to the doctor to have this checked and has been using ointment that he said because his feet are so numb from his diabetic neuropathy. He does continue to travel quite a bit to [place], but has recently been home and will be home through the rest of the year for the holidays. ALLERGIES: HE HAS ALLERGY TO PENICILLIN. MEDICATIONS: Oxycodone 5 mg q.i.d., nortriptyline 75 mg at bedtime, gabapentin 300 mg, he takes 900 in the morning and 1500 at night; Senokot daily, Movantik 25 mg at bedtime, fenofibrate 160 mg at bedtime, Trulicity 0.75 subcutaneous, vitamin D, iron, Tylenol Extra Strength as needed, Altace 2.5 mg daily, Plavix 75 mg daily, Lasix 80 mg daily, stool softener, aspirin 81 mg, insulin Lantus at bedtime various dose, metformin 1000 mg daily, atorvastatin 80 mg at bedtime, Ambien 10 mg at bedtime and Zontivity 2.08 mg at bedtime. PQRS: Today, 1. He has a history of osteoarthritis in his back, denies rheumatoid arthritis. 2. Height is 5 feet 10 inches, weight is 278, BMI is 40. 3. Vital signs: Blood pressure 133/66, pulse is 93, respirations 20, oxygen sat is 96%. 4. Pain score is 2/3. 5. Fall risk: He denies dizziness. Does not need help walking or standing. Has not fallen in the last 3 months. 6. Blood thinner as Plavix. He denies history of hypertension. 7. Opioid therapy is greater than 6 weeks. Therefore, an opioid signed [address] [address] PAIN MANAGEMENT CONSULTATION Name: SUSANEDWIN MERCADO [facility] Room #: FELIX Pires#: [id number] Admission: 04/30/18 Attend Phys: Latoya Reeves Discharge: Date of : 53 Report #: [id number] contract is on the chart. 8. His risk assessment tool is low. His functional assessment is 26/70. 9. He has no history of recreational drug use. Does not smoke and does not drink alcohol. 10. We did check the patient's prescription monitoring system, the patient is filling appropriately from Dr. Edwin Maciel on timely fills at [facility]. PHYSICAL EXAMINATION: GENERAL: This is a well-developed, well-nourished, well-hydrated exogenously obese 63-year-old male, appears his stated age, placing his current pain score 2-3 today as an average. HEENT: Normocephalic, atraumatic. Pupils equal, round and reactive to light. Extraocular eye muscles are intact. Speech is fluent. EXTREMITIES: Showing no clubbing, no cyanosis. Prosthetic limb on his left lower extremity. The patient reports loss of toenail on his right foot, I did not visualize this today with his shoe on. MUSCULOSKELETAL: Upper extremity strength is weakened bilaterally, judged to be 4/5. He has decreased sensation on the C8 dermatomes bilaterally. Some atrophy of his hands bilaterally, greater on the right than the left. Numbness in his right lower extremity. The patient walks with an antalgic gait. IMPRESSION: 1. Brachial plexopathy. 2. Peripheral neuropathy. 3. Complicated medical therapy. 4. Chronic intractable pain. We reviewed the fact that opiate medications are being used to provide analgesia adequate to support activities of daily living, not attempting to achieve a specific pain score on the 0-10 Visual Analog Scale. The current opiate medications are providing sufficient analgesia to allow the patient to participate in activities of daily living. The patient is not exhibiting any aberrant behavior suggestive of drug diversion. The patient is not having any adverse reactions to medications. The patient is not suffering from daytime somnolence or mental acuity changes. The patient is managing opiate-induced constipation with appropriate jyft-dcz-fawsfiw agents and dietary considerations. The patient was counseled on concern for caution with operating a motor vehicle while using opiate medications. A physical exam was performed and the patient's functional status was evaluated. All patients with back pain were advised against the bed rest greater than 4 days and were advised to return to normal activities. Pain score assessment was noted and the treatment plan was reviewed with the patient. All current medications, both prescribed and OTC were reviewed and reconciled on the electronic medical record. Tobacco screening was accomplished and smoking cessation was advised when indicated. BMI was noted and diet/exercise [address] [address] PAIN MANAGEMENT CONSULTATION Name: EDWIN DAVIS [facility] Room #: REG ROCK Pires#: [id number] Admission: 04/30/18 Attend Phys: Latoya Reeves Discharge: Date of : 53 Report #: [id number] modification was recommended for all patients following outside normal parameters. I reviewed with the patient today their responsibilities to safeguard prescription medications, reviewed their responsibility to utilize medications only as prescribed by the physician. They are to seek and receive pain medications only from 1 physician group ( [facility]). They are to use 1 pharmacy and keep the clinic informed if they change pharmacies. Their responsibilities include making followup visits in a timely fashion and to avoid abrupt discontinuation of medication usage. Their responsibilities further include bringing their medications (bottles from the pharmacy with residual pills) to the visit for possible confirmation of pill counts and the patient understands it is their responsibility to submit to random drug screens to ensure both that the medications prescribed are present, and that no other controlled substances are present. All prescriptions provided today were generated electronically. PLAN: 1. The patient seen today for a refill of his current medications. We discussed the CDC guidelines. The patient is taking oxycodone 5 mg up to 4 times a day. This place him on the CDC guidelines of very low under 50 MME per day at 30 as his calculation. Patient tells me that he had decreased over the years and used to be on 6, but he is doing well on the 4. He will be seen every 3 months and scripts today given for oxycodone 5 mg, quantity 120 for today, 4-week and 8-week release. 2. The patient also given nortriptyline 75 mg 1 tablet at bedtime with 2 additional refills. 3. Script for gabapentin 300 mg, the patient takes 3 tablets in the morning and 5 at night, #240 with 2 additional refills. 4. We will see the patient back in 3 months for followup for his medication. He will continue to safeguard his medications when he travels extensively. The patient is agreeable with this plan of care. 5. The patient seen in collaboration today with Dr. Edwin Maciel. <ELECTRONICALLY SIGNED> By: Latoya Reeves 05/01/18 0918 0930 1120 Latoya Reeves /darien
[2018-04-30 08:35] VITALS: BP 134/66
== END ==
LOC: PAIN 08:17
DX: G54.0 Brachial plexus disorders (principal); G62.9 Polyneuropathy, unspecified; G89.4 Chronic pain syndrome; Z79.899 Other long term (current) drug therapy

== ENCOUNTER → 2018-07-08 | Outpatient (CLI) | payer BC | LOC: HYPER 06:49 | DX: T87.89 Other complications of amputation stump (principal); E11.622 Type 2 diabetes mellitus with other skin ulcer; L89.899 Pressure ulcer of other site, unspecified stage; L97.821 Non-pressure chronic ulcer of other part of left lower leg limited to breakdown of skin; L84 Corns and callosities; E11.51 Type 2 diabetes mellitus with diabetic peripheral angiopathy without gangrene; E11.40 Type 2 diabetes mellitus with diabetic neuropathy, unspecified; E78.5 Hyperlipidemia, unspecified; E66.9 Obesity, unspecified; I25.10 Atherosclerotic heart disease of native coronary artery without angina pectoris; Z86.73 Personal history of transient ischemic attack (TIA), and cerebral infarction without residual deficits; Z68.37 Body mass index [BMI] 37.0-37.9, adult; Y83.5 Amputation of limb(s) as the cause of abnormal reaction of the patient, or of later complication, without mention of misadventure at the time of the procedure ==

== ENCOUNTER → 2018-08-21 | Outpatient (CLI) | payer BC ==
[~2018-08-21] VITALS: Ht 177.8 cm; Wt 124.4 kg
[~2018-08-21] MED LIST changes: +AMITRIPTYLINE H75 M1 PO; +CALCIUM 600 +1 EAC1 PO; +HYDROCODON-ACE1 EAC5 PO; +LOPRESSOR50 PO
[2018-08-21 09:26] VITALS: BP 130/64
--- NOTE | 2018-08-21 09:33 | NUR ---
Pain Clinic Assessment: 1. History of Osteoarthritis: Not Applicable History of Rheumatoid Arthritis: Not Applicable 2. Height: 5 ft. 10 in. 177.8 cm. Weight: 274.2 lb. oz. 124.377 kg. Patient's BMI: 39.3 3. Vital Signs: BP: 130/64 Pulse: 75 Resp: 16 Temp: 02 Sat: 97 ECG Mon: 4. Pain Intensity: 2-3 5. Fall Risk: Dizziness: N Needs help standing or walking: Y Fallen in the last 3 months: N Fall risk comments: 6. Patient on Blood Thinner: Clopidogrel Bisulf(Plavix 7. History of Hypertension: N 8. Opioid Therapy greater than 6 weeks: Y Opiate Contract Signed: 07/11/17 9. Risk Assessment Tool Provided: LOW RISK 0/3 10. Functional Assessment Tool: 11. Recreational Drug Use: Never Drug Type: Tobacco Use: Never Smoker Tobacco Type: Amount or Packs/day: How Many Years: Alcohol Use: No Frequency: Quant:
--- NOTE | 2018-08-26 07:53 | HPC ---
[facility] [address] [place] [address] PAIN MANAGEMENT CONSULTATION Name: EDWIN DAVIS III Room #: REG ROCK Pires#: [id number] Admission: 08/21/18 ������������������ Attend Phys: Latoya Reeves Discharge: ������������������ Date of : 51 Report #: [id number] THIS REPORT FOR: //name// CC: Latoya KEMP DATE OF SERVICE: 08/21/2018 CHIEF COMPLAINT: Bilateral upper extremity pain secondary to brachial plexopathy. HISTORY OF PRESENT ILLNESS: This is a very pleasant 63-year-old gentleman who returns to the pain clinic today for refill of his medications. He tells me that he is out of his oxycodone. He had to stay longer in [place] for work; therefore, that made him run short of his medications. He slowly decreased them and then until he was out, so he has been out a week and did go through withdrawal symptoms when he was gone. The patient tells me otherwise, he was doing pretty good. His pain score was 2-3, but today he is rating at 6-7 on a scale of 10. The patient tells me that he also needs a refill today of his nortriptyline and his gabapentin. He tells me the last few days, his hands were just burning like knives because he was off of his medications. He tells me he is not having any problems with constipation since his medicines were not in his system and as I said earlier, he told me he had diarrhea recently, so has not been taking his Movantik. ALLERGIES: No known drug allergies. MEDICATIONS: The patient's list of medications: Oxycodone 5 mg 4 times a day, nortriptyline 75 mg daily, gabapentin 900 mg in the morning and 1500 mg at night, Senokot as needed, Movantik as needed, fenofibrate 48 mg at bedtime, Trulicity daily, vitamin D daily, iron 325 mg daily, Altace 2.5 mg daily, Plavix 75 mg at bedtime, Lasix 80 mg daily, aspirin 81 mg daily, Lantus sliding scale at bedtime, metformin 1000 mg daily, atorvastatin 80 mg at bedtime and Ambien 10 mg at bedtime. PQRS: 1. He does have a history of osteoarthritis in his back and denies any rheumatoid arthritis. 2. Height is 5 feet 10 inches, weight is 278, BMI is 40. 3. Vital signs: Blood pressure 134/66, pulse is 93, respirations 20, oxygen sat is 96. 4. Pain score is 7/10. 5. Fall risk. Denies dizziness. Does not need help walking. He uses a cane. He has not fallen in the last 3 months. 6. The patient is on blood thinners and does not [place] [address] PAIN MANAGEMENT CONSULTATION Name: EDWIN DAVIS [facility] Room #: REG ROCK Pires#: [id number] Admission: 08/21/18 ������������������ Attend Phys: Latoya Reeves Discharge: ������������������ Date of : 51 Report #: [id number] 7. Opioid therapy which is greater than 6 weeks. Therefore, an opioid signed contract is on the chart. 8. Risk assessment tool is low. Functional assessment is 26/70. Recreational drug use, he denies. He is not a smoker and does not drink alcohol. We did check the prescription monitoring system. The patient is due for his medicines past due. He filled the last one more than a month ago. We have not checked a drug screen on this patient. Our plan was to do that today, but since he has been out of his medicines for greater than a week, we will defer that for one more visit. PHYSICAL EXAMINATION: GENERAL: This is a well-developed, well-nourished, well-hydrated exogenously obese 63-year-old gentleman who appears his stated age. Placing his pain score today at 7/10. HEENT: Normocephalic, atraumatic. Pupils equal, round and reactive to light. Extraocular eye muscles are intact. EXTREMITIES: No clubbing, no cyanosis. 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 The patient reports very significant burning in his hands today. MUSCULOSKELETAL: Upper extremity strength is weakened bilaterally, judged to be 4/5 bilaterally, numbness and burning as stated in his bilateral upper extremities and numbness in his right lower extremity as well. He walks with an antalgic gait. IMPRESSION: 1. Brachial plexopathy. 2. Peripheral neuropathy. 3. Complex medical management in terms of written opioid agreement. 4. Chronic intractable pain. We reviewed the fact that opiate medications are being used to provide analgesia adequate to support activities of daily living, not attempting to achieve a specific pain score on the 0-10 Visual Analog Scale. The current opiate medications are providing sufficient analgesia to allow the patient to participate in activities of daily living. The patient is not exhibiting any aberrant behavior suggestive of drug diversion. The patient is not having any adverse reactions to medications. The patient is not suffering from daytime somnolence or mental acuity changes. The patient is managing opiate-induced constipation with appropriate ckty-lsm-wowuyxz agents and dietary considerations. The patient was counseled on concern for caution with operating a motor vehicle while using opiate medications. A physical exam was performed and the patient's functional status was evaluated. All patients with back pain were advised against the bed rest greater than 4 days and were advised to return to normal activities. Pain score assessment was noted and the treatment plan was reviewed with the patient. All current medications, both prescribed and OTC were reviewed and reconciled on the [facility] [address] [place] [address] PAIN MANAGEMENT CONSULTATION Name: EDWIN DAVIS III Room #: REG [facility] M.R.#: [id number] Admission: 08/21/18 ������������������ Attend Phys: Latoya Reeves Discharge: ������������������ Date of : 51 Report #: [id number] electronic medical record. Tobacco screening was accomplished and smoking cessation was advised when indicated. BMI was noted and diet/exercise modification was recommended for all patients following outside normal parameters. I reviewed with the patient today their responsibilities to safeguard prescription medications, reviewed their responsibility to utilize medications only as prescribed by the physician. They are to seek and receive pain medications only from 1 physician group ( [facility]). They are to use 1 pharmacy and keep the clinic informed if they change pharmacies. Their responsibilities include making followup visits in a timely fashion and to avoid abrupt discontinuation of medication usage. Their responsibilities further include bringing their medications (bottles from the pharmacy with residual pills) to the visit for possible confirmation of pill counts and the patient understands it is their responsibility to submit to random drug screens to ensure both that the medications prescribed are present, and that no other controlled substances are present. All prescriptions provided today were generated electronically. PLAN: 1. We discussed treatment options with the patient today. The patient travels extensively for work. His trip was prolonged and therefore he has run out of his medicines, had gone through significant withdrawal symptoms. I discussed this with Dr. Edwin Maciel who did see the patient as well today. It was decided to continue his oxycodone 5 mg, #120 for today, 4 and 8-week releases, but then give him an additional script for hydrocodone 10/325, quantity 30 for patient to fill and use in emergency to take with him when he travels overseas in case this happens again to prevent withdrawal symptoms. The patient is agreeable with this plan of care and thankful for this opportunity to prevent withdrawal symptoms again. 2. Script was also given for gabapentin 300 mg, he takes 900 in the morning and 900MG at bedtime, quantity 240 with 2 additional refills, and nortriptyline 75 mg at bedtime, quantity 30 with 2 additional refills. 3. The patient is seen with Dr. Edwin Maciel today who also collaborated care. He will follow up in 3 months' time. ��������������������������������������������� <ELECTRONICALLY SIGNED> ���������������������������������������� By: Latoya Reeves ��������������������������������������������� 08/26/18 [id number] Latoya Reeves /nt
== END ==
LOC: PAIN 06:49
DX: G54.0 Brachial plexus disorders (principal); G62.9 Polyneuropathy, unspecified; G89.4 Chronic pain syndrome; Z79.891 Long term (current) use of opiate analgesic

== ENCOUNTER → 2018-09-02 | Outpatient (CLI) | payer BC | LOC: HYPER 06:55 | DX: T87.89 Other complications of amputation stump (principal); E11.622 Type 2 diabetes mellitus with other skin ulcer; L89.899 Pressure ulcer of other site, unspecified stage; L97.821 Non-pressure chronic ulcer of other part of left lower leg limited to breakdown of skin; L84 Corns and callosities; E11.42 Type 2 diabetes mellitus with diabetic polyneuropathy; E11.51 Type 2 diabetes mellitus with diabetic peripheral angiopathy without gangrene; E78.5 Hyperlipidemia, unspecified; E66.9 Obesity, unspecified; I25.10 Atherosclerotic heart disease of native coronary artery without angina pectoris; R21 Rash and other nonspecific skin eruption; Z68.37 Body mass index [BMI] 37.0-37.9, adult; Z86.73 Personal history of transient ischemic attack (TIA), and cerebral infarction without residual deficits; Y83.5 Amputation of limb(s) as the cause of abnormal reaction of the patient, or of later complication, without mention of misadventure at the time of the procedure ==

== ENCOUNTER → 2018-10-16 | Outpatient (CLI) | payer BC, OTHER | LOC: HYPER 06:39 | DX: T87.89 Other complications of amputation stump (principal); S91.301D Unspecified open wound, right foot, subsequent encounter; S91.209D Unspecified open wound of unspecified toe(s) with damage to nail, subsequent encounter; S90.414D Abrasion, right lesser toe(s), subsequent encounter; E11.40 Type 2 diabetes mellitus with diabetic neuropathy, unspecified; E11.51 Type 2 diabetes mellitus with diabetic peripheral angiopathy without gangrene; L84 Corns and callosities; I25.10 Atherosclerotic heart disease of native coronary artery without angina pectoris; E78.5 Hyperlipidemia, unspecified; E66.9 Obesity, unspecified; R21 Rash and other nonspecific skin eruption; Z68.37 Body mass index [BMI] 37.0-37.9, adult; Z86.73 Personal history of transient ischemic attack (TIA), and cerebral infarction without residual deficits; X58.XXXD Exposure to other specified factors, subsequent encounter; Y83.5 Amputation of limb(s) as the cause of abnormal reaction of the patient, or of later complication, without mention of misadventure at the time of the procedure ==

== ENCOUNTER → 2018-10-23 | Outpatient (CLI) | payer BC, OTHER | LOC: HYPER 06:43 | DX: S90.414D Abrasion, right lesser toe(s), subsequent encounter (principal); R21 Rash and other nonspecific skin eruption; E11.40 Type 2 diabetes mellitus with diabetic neuropathy, unspecified; E11.51 Type 2 diabetes mellitus with diabetic peripheral angiopathy without gangrene; L84 Corns and callosities; I25.10 Atherosclerotic heart disease of native coronary artery without angina pectoris; E78.5 Hyperlipidemia, unspecified; E66.9 Obesity, unspecified; Z89.512 Acquired absence of left leg below knee; Z86.73 Personal history of transient ischemic attack (TIA), and cerebral infarction without residual deficits; X58.XXXD Exposure to other specified factors, subsequent encounter ==

== ENCOUNTER → 2018-11-07 | Outpatient (CLI) | payer BC, OTHER | LOC: HYPER 06:53 | DX: E11.621 Type 2 diabetes mellitus with foot ulcer (principal); L97.512 Non-pressure chronic ulcer of other part of right foot with fat layer exposed; E11.40 Type 2 diabetes mellitus with diabetic neuropathy, unspecified; E11.51 Type 2 diabetes mellitus with diabetic peripheral angiopathy without gangrene; I25.10 Atherosclerotic heart disease of native coronary artery without angina pectoris; E78.5 Hyperlipidemia, unspecified; R21 Rash and other nonspecific skin eruption; E66.9 Obesity, unspecified; Z68.37 Body mass index [BMI] 37.0-37.9, adult; Z86.73 Personal history of transient ischemic attack (TIA), and cerebral infarction without residual deficits; Z89.512 Acquired absence of left leg below knee ==

== ENCOUNTER → 2018-11-25 | Outpatient (CLI) | payer BC, OTHER | LOC: HYPER 11-21 06:47 | DX: E11.621 Type 2 diabetes mellitus with foot ulcer (principal); L97.512 Non-pressure chronic ulcer of other part of right foot with fat layer exposed; S90.411D Abrasion, right great toe, subsequent encounter; S90.414D Abrasion, right lesser toe(s), subsequent encounter; R21 Rash and other nonspecific skin eruption; E11.51 Type 2 diabetes mellitus with diabetic peripheral angiopathy without gangrene; E11.42 Type 2 diabetes mellitus with diabetic polyneuropathy; E78.5 Hyperlipidemia, unspecified; E66.9 Obesity, unspecified; I25.10 Atherosclerotic heart disease of native coronary artery without angina pectoris; Z86.73 Personal history of transient ischemic attack (TIA), and cerebral infarction without residual deficits; Z89.512 Acquired absence of left leg below knee; X58.XXXD Exposure to other specified factors, subsequent encounter ==

== ENCOUNTER → 2018-12-09 | Outpatient (CLI) | payer BC, OTHER ==
[~2018-12-09] MED LIST changes: +LYRICA225 MG PO; +NORCO 10-325 T1 EACH PO
== END ==
LOC: HYPER 06:35
DX: E11.621 Type 2 diabetes mellitus with foot ulcer (principal); L97.512 Non-pressure chronic ulcer of other part of right foot with fat layer exposed; E11.40 Type 2 diabetes mellitus with diabetic neuropathy, unspecified; E11.51 Type 2 diabetes mellitus with diabetic peripheral angiopathy without gangrene; L84 Corns and callosities; I25.10 Atherosclerotic heart disease of native coronary artery without angina pectoris; E78.5 Hyperlipidemia, unspecified; R21 Rash and other nonspecific skin eruption; E66.9 Obesity, unspecified; Z86.73 Personal history of transient ischemic attack (TIA), and cerebral infarction without residual deficits; Z68.37 Body mass index [BMI] 37.0-37.9, adult

== ENCOUNTER → 2018-12-10 | Outpatient (CLI) | payer BC, OTHER ==
[~2018-12-10] VITALS: Ht 177.8 cm; Wt 124.3 kg
[2018-12-10 08:09] VITALS: BP 116/53
--- NOTE | 2018-12-10 08:13 | NUR ---
Pain Clinic Assessment: 1. History of Osteoarthritis: Not Applicable History of Rheumatoid Arthritis: Not Applicable 2. Height: 5 ft. 10 in. 177.8 cm. Weight: 274.0 lb. oz. 124.286 kg. Patient's BMI: 39.3 3. Vital Signs: BP: 116/53 Pulse: 74 Resp: 18 Temp: 02 Sat: 96 ECG Mon: 4. Pain Intensity: 3 5. Fall Risk: Dizziness: N Needs help standing or walking: N Fallen in the last 3 months: N Fall risk comments: 6. Patient on Blood Thinner: Clopidogrel Bisulf(Plavix 7. History of Hypertension: N 8. Opioid Therapy greater than 6 weeks: Y Opiate Contract Signed: 07/11/17 9. Risk Assessment Tool Provided: LOW RISK 0/3 10. Functional Assessment Tool: 11. Recreational Drug Use: Never Drug Type: Tobacco Use: Never Smoker Tobacco Type: Amount or Packs/day: How Many Years: Alcohol Use: No Frequency: Quant:
--- NOTE | 2018-12-10 15:27 | HPC ---
[facility] [address] [place] [address] PAIN MANAGEMENT CONSULTATION Name: EDWIN DAVIS [facility] Room #: REG [facility] Pranay#: [id number] Admission: 12/10/18 ������������������ Attend Phys: Latoya Reeves Discharge: ������������������ Date of : 51 Report #: [id number] THIS REPORT FOR: //name// CC: Latoya KEMP Physician staff DATE OF SERVICE: 12/10/2018 CHIEF COMPLAINT: Bilateral upper extremity pain secondary to brachial plexopathy. HISTORY OF PRESENT ILLNESS: This is a very pleasant 63-year-old gentleman who returns to the pain clinic today for refill of his medications. He tells me that he did run out of his gabapentin over the weekend. He went through severe withdrawal symptoms. He felt like his hands were on fire. He did get a hold of Dr. Edwin Maciel over the weekend who did call him in his gabapentin again and his pain has come back down to a level of 3/10, which is his normal pain score. He tells me that was excruciating and he does not want to have that happen again. He will be more alert on times that when his medication is out. He thought he had another refill and he was wrong. He said his pain is always present during the day. It is a fairly constant level but the medications are extremely helpful, his gabapentin, his nortriptyline and his oxycodone. He tells me he has no problems with constipation as long as he takes his slpf-wyp-vepwghc stool softeners even when he travels, he does quite well. The patient did tell me that he did have to use his hydrocodone , which we have given him in case he was overseas longer and had run out of his oxycodone. He would like a refill of that medication as well. He does continue to travel to [place] quite frequently for extended periods of time for his work. ALLERGIES: No known drug allergies. CURRENT LIST OF MEDICATIONS: Gabapentin 900 in the morning and 1500 at night, nortriptyline 75 mg at bedtime, Lopressor 50 mg at dinner, Caltrate, oxycodone 5 mg 4 times a day, Senokot, Movantik, fenofibrate, Trulicity, vitamin D, iron, Tylenol, Altace, Plavix, Lasix, aspirin, Lantus insulin, Glucophage, Lipitor and Ambien. PQRS: 1. He has a history of osteoarthritis in his back. Denies any rheumatoid arthritis. 2. Height is 5 feet 10 inches, weight is 274 and BMI is 39. 3. VITAL SIGNS: Blood signs 116/53, pulse is 74, respirations 18 [place] oxygen [place] 96. [place] [address] PAIN MANAGEMENT CONSULTATION Name: EDWIN DAVIS [facility] Room #: REG ROCK Pires#: [id number] Admission: 12/10/18 ������������������ Attend Phys: Latoya Reeves Discharge: ������������������ Date of : 51 Report #: [id number] 4. Pain score is 3/10. 5. Denies dizziness. Does not need help with walking or standing, has not fallen in the last 3 months. 6. The patient is on Plavix. He does take medicine for hypertension. 7. Opioid therapy is greater than 6 weeks; therefore, an opioid signed contract is on the chart. 8. Risk assessment tool is low. Functional assessment . 9. Recreational drug use, he denies. He is not a smoker and does not drink alcohol. We did check the prescription monitoring system. He is filling appropriately for his medication, is on time today for refills. He safeguards his meds at all times. PHYSICAL EXAMINATION: GENERAL: This is a well-developed, well-nourished, well-hydrated, exogenously obese 63-year-old gentleman who appears his stated age. He is alert and oriented, placing his pain score at 3/10 today. HEENT: Normocephalic and atraumatic. Pupils equal, round and reactive to light. Extraocular eye muscles are intact. EXTREMITIES: No clubbing and no cyanosis. 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 Complains of burning in his hands bilaterally. MUSCULOSKELETAL: Upper extremity strength is weakened bilaterally, judged to be 4/5, numbness and burning stated in his upper extremities and into his hands as well as his right foot. He walks with a slight antalgic gait due to his prosthetic limb on his left leg. IMPRESSION: 1. Brachial plexopathy. 2. Peripheral neuropathy. 3. Complex medical management in terms of written opioid agreement. 4. Chronic intractable pain. We reviewed the fact that opiate medications are being used to provide analgesia adequate to support activities of daily living, not attempting to achieve a specific pain score on the 0-10 Visual Analog Scale. The current opiate medications are providing sufficient analgesia to allow the patient to participate in activities of daily living. The patient is not exhibiting any aberrant behavior suggestive of drug diversion. The patient is not having any adverse reactions to medications. The patient is not suffering from daytime somnolence or mental acuity changes. The patient is managing opiate-induced constipation with appropriate pgwc-ukd-eagqwau agents and dietary considerations. The patient was counseled on concern for caution with operating a motor vehicle while using opiate medications. A physical exam was performed and the patient's functional status was evaluated. [address] [place] [address] PAIN MANAGEMENT CONSULTATION Name: EDWIN DAVIS III Room #: REG [facility] M.Braulio.#: [id number] Admission: 12/10/18 ������������������ Attend Phys: Latoya Reeves Discharge: ������������������ Date of : 51 Report #: [id number] All patients with back pain were advised against the bed rest greater than 4 days and were advised to return to normal activities. Pain score assessment was noted and the treatment plan was reviewed with the patient. All current medications, both prescribed and OTC were reviewed and reconciled on the electronic medical record. Tobacco screening was accomplished and smoking cessation was advised when indicated. BMI was noted and diet/exercise modification was recommended for all patients following outside normal parameters. I reviewed with the patient today their responsibilities to safeguard prescription medications, reviewed their responsibility to utilize medications only as prescribed by the physician. They are to seek and receive pain medications only from 1 physician group ( [facility]). They are to use 1 pharmacy and keep the clinic informed if they change pharmacies. Their responsibilities include making followup visits in a timely fashion and to avoid abrupt discontinuation of medication usage. Their responsibilities further include bringing their medications (bottles from the pharmacy with residual pills) to the visit for possible confirmation of pill counts and the patient understands it is their responsibility to submit to random drug screens to ensure both that the medications prescribed are present, and that no other controlled substances are present. All prescriptions provided today were generated electronically. PLAN: 1. We discussed treatment options with the patient today when we were discussing his gabapentin that he had run out over the weekend. I did tell him that Lyrica is now generic, which was a similar type of medicine, he tells me in the past he had been on that medicine and it was very helpful in controlling his pain and he required less medicine pills per day, but it was quite expensive. After much discussion with Dr. Edwin Maciel, we decided to rotate him back to Lyrica, scripts given for 225 mg b.i.d., #60 with 2 additional refills. This is an equivalent dosing calculation for this gentleman. A coupon was also given to the patient and dispense as written for this medication. 2. Script was also given for his nortriptyline 75 mg 1 at bedtime, quantity 30 with 2 additional refills; hydrocodone to take in case needed for rescue medicine when he is traveling at 10/325, quantity is #30 and then his normal oxycodone scripts of 5 mg 4 times a day, #120 for today, 4 and 8-week release. 3. The patient is instructed to call in a timely fashion as to not run out of his medications again. He verbalizes understanding. The patient is seen today with Dr. Edwin Maciel who collaborated care. ��������������������������������������������� <ELECTRONICALLY SIGNED> ���������������������������������������� By: Latoya Reeves ��������������������������������������������� 12/10/18 [id number] [id number] Latoya Reeves /nt
== END ==
LOC: PAIN 07:38
DX: G62.9 Polyneuropathy, unspecified (principal); G89.29 Other chronic pain; G54.0 Brachial plexus disorders; Z79.891 Long term (current) use of opiate analgesic

== ENCOUNTER → 2018-12-13 | Outpatient (CLI) | payer BC, OTHER | LOC: HYPER 06:48 | DX: E11.621 Type 2 diabetes mellitus with foot ulcer (principal); L97.512 Non-pressure chronic ulcer of other part of right foot with fat layer exposed; R21 Rash and other nonspecific skin eruption; E11.51 Type 2 diabetes mellitus with diabetic peripheral angiopathy without gangrene; E11.42 Type 2 diabetes mellitus with diabetic polyneuropathy; E78.5 Hyperlipidemia, unspecified; E66.9 Obesity, unspecified; I25.10 Atherosclerotic heart disease of native coronary artery without angina pectoris; Z86.73 Personal history of transient ischemic attack (TIA), and cerebral infarction without residual deficits; Z89.512 Acquired absence of left leg below knee ==

== ENCOUNTER → 2018-12-20 | Outpatient (CLI) | payer BC, OTHER | LOC: HYPER 06:48 | DX: E11.621 Type 2 diabetes mellitus with foot ulcer (principal); L97.516 Non-pressure chronic ulcer of other part of right foot with bone involvement without evidence of necrosis; S90.411D Abrasion, right great toe, subsequent encounter; S90.414D Abrasion, right lesser toe(s), subsequent encounter; R21 Rash and other nonspecific skin eruption; E11.42 Type 2 diabetes mellitus with diabetic polyneuropathy; E11.51 Type 2 diabetes mellitus with diabetic peripheral angiopathy without gangrene; E78.5 Hyperlipidemia, unspecified; E66.9 Obesity, unspecified; I25.10 Atherosclerotic heart disease of native coronary artery without angina pectoris; Z89.512 Acquired absence of left leg below knee; Z86.73 Personal history of transient ischemic attack (TIA), and cerebral infarction without residual deficits; Z68.37 Body mass index [BMI] 37.0-37.9, adult ==

== ENCOUNTER → 2019-02-04 | Outpatient (CLI) | payer BC, OTHER ==
[~2019-02-04] VITALS: Ht 177.8 cm; Wt 125.2 kg
[2019-02-04 10:04] VITALS: BP 130/70
--- NOTE | 2019-02-04 10:08 | NUR ---
Pain Clinic Assessment: 1. History of Osteoarthritis: Not Applicable History of Rheumatoid Arthritis: Not Applicable 2. Height: 5 ft. 10 in. 177.8 cm. Weight: 276.0 lb. oz. 125.193 kg. Patient's BMI: 39.6 3. Vital Signs: BP: Pulse: Resp: Temp: 02 Sat: ECG Mon: 4. Pain Intensity: 1-2 ON MED 5. Fall Risk: Dizziness: N Needs help standing or walking: Y Fallen in the last 3 months: N Fall risk comments: 6. Patient on Blood Thinner: Clopidogrel Bisulf(Plavix 7. History of Hypertension: N 8. Opioid Therapy greater than 6 weeks: Y Opiate Contract Signed: 07/11/17 9. Risk Assessment Tool Provided: LOW RISK 0/3 10. Functional Assessment Tool: 11. Recreational Drug Use: Never Drug Type: Tobacco Use: Never Smoker Tobacco Type: Amount or Packs/day: How Many Years: Alcohol Use: No Frequency: Quant:
--- NOTE | 2019-02-04 10:09 | NUR ---
Pain Clinic Assessment: 1. History of Osteoarthritis: Not Applicable History of Rheumatoid Arthritis: Not Applicable 2. Height: 5 ft. 10 in. 177.8 cm. Weight: 276.0 lb. oz. 125.193 kg. Patient's BMI: 39.6 3. Vital Signs: BP: 130/70 Pulse: 90 Resp: 18 Temp: 02 Sat: 95 ECG Mon: 4. Pain Intensity: 1-2 ON MED 5. Fall Risk: Dizziness: N Needs help standing or walking: Y Fallen in the last 3 months: N Fall risk comments: 6. Patient on Blood Thinner: Clopidogrel Bisulf(Plavix 7. History of Hypertension: N 8. Opioid Therapy greater than 6 weeks: Y Opiate Contract Signed: 07/11/17 9. Risk Assessment Tool Provided: LOW RISK 0/3 10. Functional Assessment Tool: 11. Recreational Drug Use: Never Drug Type: Tobacco Use: Never Smoker Tobacco Type: Amount or Packs/day: How Many Years: Alcohol Use: No Frequency: Quant:
--- NOTE | 2019-02-06 13:10 | HPC ---
[facility] [place] [address] PAIN MANAGEMENT CONSULTATION Name: EDWIN DAVIS JESS AMANDA Room #: REG [facility] Pranay#: [id number] Admission: 02/04/19 ������������������ Attend Phys: Latoya Reeves Discharge: ������������������ Date of : 51 Report #: [id number] THIS REPORT FOR: //name// CC: Latoya KEMP Physician staff DATE OF SERVICE: 02/04/2019 CHIEF COMPLAINT: Bilateral upper extremity pain secondary to brachial plexopathy. HISTORY OF PRESENT ILLNESS: This is a very pleasant 63-year-old gentleman who returns to the pain clinic today to discuss his Lyrica medication as well as a possible prescription for Movantik. The patient has bilateral hand pain and fingertip pain as a result of his open heart surgery. His pain medications as well as his neuropathic medicine greatly improved his hand pain, and he complains today of a pain score of 1-2. As a result of taking his opioid medications for his pain, he does suffer from opioid-induced constipation, has been taking Movantik for quite some time as well as other vckr-qds-cgoslfk stool softeners. He has been getting this from his nurse practitioner, who he sees only once a year. He is requesting us to write this medication since he does come to see us on a more regular basis. The patient tells me that we have started him back on Lyrica in November. He was noticing good efficacy from this medication. He went to renew this medicine and his pharmacy would not refill the Lyrica and gave him an old prescription of gabapentin instead, would not tell him why, and he has been having struggles ever since. He feels that the Lyrica is much more beneficial than the gabapentin. Also, the gabapentin he was requiring multiple pills a day in excess of 8, whereas the Lyrica, he is able to take 2 pills a day, which is more beneficial for him. He is here to request refills. He thinks he may need Lyrica. He is uncertain. The patient does not need any refills of his oxycodone today since he was here in November and was given 3 months of that medicine at that time. ALLERGIES: No known drug allergies. CURRENT LIST OF MEDICATIONS: Nortriptyline 75 mg at bedtime, Lyrica 225 mg b.i.d., oxycodone 5 mg p.r.n., Lopressor, Caltrate, Senokot, Movantik, fenofibrate, Trulicity, vitamin D, iron, Altace, Plavix, Lasix, stool softeners, aspirin, Lantus, Glucophage, Lipitor and Ambien. PQRS: 1. He has a history of osteoarthritis in his back. [place] [address] PAIN MANAGEMENT CONSULTATION Name: EDWIN DAVIS [facility] Room #: REG [place] Pires#: [id number] Admission: 02/04/19 ������������������ Attend Phys: Latoya Reeves Discharge: ������������������ Date of : 51 Report #: [id number] 2. Height is 5 feet 10 inches, weight is 276, BMI is 39. 3. Vital signs 130/70, pulse is 90, respirations 18, oxygen sat is 95. 4. Pain score is 1-2. 5. Denies dizziness. He does need help walking and standing. He has not fallen in the last 3 months. 6. The patient is on Plavix as well as does not take any medicine for hypertension. 7. Opioid therapy is greater than 6 weeks; therefore, an opiate signed contract is on the chart. Risk assessment tool is low. Functional assessment is /70. 8. Recreational drug use, he denies. He is not a smoker and does not drink alcohol. According to the prescription monitoring system, the patient is filling appropriately and is filling meds today of his oxycodone. We will check a random drug screen on him on his next visit. PHYSICAL EXAMINATION: GENERAL: This is a well-developed, well-nourished, well-hydrated, exogenous, obese 63-year-old gentleman who appears his stated age, placing his current pain score at 2/10 today. HEENT: Normocephalic, atraumatic. Pupils equal, round and reactive to light. Extraocular eye muscles are intact. EXTREMITIES: No clubbing, no cyanosis. 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 He has burning in his hands, bilateral. MUSCULOSKELETAL: Upper extremity strength is weakened bilaterally, judged to be 4/5, again numbness and burning in his upper extremities into his hands. He also has right foot burning. He walks with a slightly antalgic gait due to his prosthetic limb. IMPRESSION: 1. Brachial plexopathy. 2. Peripheral neuropathy. 3. Diabetes mellitus, on insulin and oral medications. 4. Complex medical management under terms of written opioid agreement. 5. Chronic intractable pain. 6. Opioid-induced constipation. PLAN: 1. We discussed the patient's treatment options today. I am willing to write for his Movantik 25 mg. The patient to take once a day. The patient does suffer from opioid-induced constipation from his oxycodone. He has had several issues of severe constipation in the past. He has been managing this with the Movantik from his primary care physician, so this is ongoing therapy as well as taking Senokot and Colace oecf-rih-woclfqc and dietary adjustments to his diet as needed. 2. I spent greater than 20 minutes on the phone with Esteban bonilla to [facility] [address] [place] [address] PAIN MANAGEMENT CONSULTATION Name: EDWIN DAVIS III Room #: REG Ge Pires#: [id number] Admission: 02/04/19 ������������������ Attend Phys: Latoya Reeves Discharge: ������������������ Date of : 51 Report #: [id number] determine why they were not giving the patient his Lyrica. The patient found that the rotation from gabapentin to Lyrica was quite beneficial. He felt his pain was very well controlled in his hands, his neuropathy from the Lyrica and he was enjoying not needing to take 8 pills a day of gabapentin, which was the equivalent dosing. The pharmacy was unable to tell me why they did not fill his Lyrica and chose to give him gabapentin again. They have since voided all gabapentin scripts and will have his Lyrica brand name medication ready for him today for pickup. The patient will continue his 225 mg twice a day. The patient will call us for an appointment as needed in 2 months for all of his medication refills. 3. The patient is seen in collaboration with Dr. Edwin Maciel who did see the patient as well today. ��������������������������������������������� <ELECTRONICALLY SIGNED> ���������������������������������������� By: Latoya Reeves ��������������������������������������������� 02/06/19 1310 [id number] Latoya gardner
== END ==
LOC: PAIN 06:45
DX: G89.4 Chronic pain syndrome (principal); G62.9 Polyneuropathy, unspecified; E11.9 Type 2 diabetes mellitus without complications; Z79.4 Long term (current) use of insulin; Z79.891 Long term (current) use of opiate analgesic; Z79.899 Other long term (current) drug therapy; Z79.82 Long term (current) use of aspirin

== ENCOUNTER → 2019-05-14 | Outpatient (CLI) | payer BC, OTHER ==
[~2019-05-14] VITALS: Ht 177.8 cm; Wt 130.9 kg
[2019-05-14 09:41] VITALS: BP 110/57
--- NOTE | 2019-05-14 10:09 | NUR ---
Pain Clinic Assessment: 1. History of Osteoarthritis: Not Applicable History of Rheumatoid Arthritis: Not Applicable 2. Height: 5 ft. 10 in. 177.8 cm. Weight: 288.6 lb. oz. 130.908 kg. Patient's BMI: 41.4 3. Vital Signs: BP: 110/57 Pulse: 75 Resp: 16 Temp: 02 Sat: 98 ECG Mon: 4. Pain Intensity: 5 5. Fall Risk: Dizziness: N Needs help standing or walking: N Fallen in the last 3 months: N Fall risk comments: 6. Patient on Blood Thinner: Clopidogrel Bisulf(Plavix 7. History of Hypertension: N 8. Opioid Therapy greater than 6 weeks: Y Opiate Contract Signed: 07/11/17 9. Risk Assessment Tool Provided: LOW RISK 0/3 10. Functional Assessment Tool: 11. Recreational Drug Use: Never Drug Type: Tobacco Use: Never Smoker Tobacco Type: Amount or Packs/day: How Many Years: Alcohol Use: No Frequency: Quant:
--- NOTE | 2019-05-15 07:48 | HPC ---
[facility] [address] [place] [address] PAIN MANAGEMENT CONSULTATION Name: EDWIN DAVIS III Room #: REG [facility] Pranay#: [id number] Admission: 05/14/19 Attend Phys: Latoya Reeves Discharge: Date of : 51 Report #: [id number] THIS REPORT FOR: //name// CC: Latoya SERRANO APRN Physician staff DATE OF SERVICE: 05/14/2019 CHIEF COMPLAINT: Bilateral upper extremity pain secondary to brachial plexopathy. HISTORY OF PRESENT ILLNESS: This is a very pleasant 64-year-old gentleman who returns to the pain clinic today for refill of his medication management of lyrica and oxycodone. He reports he has been doing quite well, rating his pain score at 5/10, though he did run out of his Lyrica over the weekend. He did have severe pain when he was off that medication. Dr. Edwin Maciel did call that prescription in for him as an emergency over the weekend, made him realize how beneficial that medicine is in controlling his neuropathic pain. Today Edwin reports his pain score of 5/10 again and there is a burning, tingling pain in his hands and fingertips. He would like refills of his medications. The patient reports that he is seeing a plow and boring machine tender trying to lose some weight. He has started this program about 3 days ago. He is on many supplements. He did not bring his list of medications with him. Today his weight is 288, which is up from his last visit of 3 months ago of 276. The patient reports that he does have problems with his weight and has lost significant amount of weight in the past, but has been having problems doing so, so he started this new weight loss program. He is hopeful that it will benefit him not only in weight loss, but also helping with his blood sugars since he is a diabetic. He reports it does require supplemental food that he will be able to take with him when he travels. ALLERGIES: No known drug allergies. CURRENT LIST OF MEDICATIONS: See extensive list that has been reconciled in the chart. PQRS: 1. He has a history of osteoarthritis in his lumbar spine. Denies any rheumatoid arthritis. 2. Height is 5 feet 10 inches, weight is 288, BMI is 41. 3. Vital signs 110/57, pulse is 75, respirations 16, oxygen [place] 98[place] [address] PAIN MANAGEMENT CONSULTATION Name: EDWIN DAVIS [facility] Room #: REG [place] Pires#: [id number] Admission: 05/14/19 Attend Phys: Latoya Reeves Discharge: Date of : 51 Report #: [id number] 4. Pain score is 5/10. 5. Denies dizziness, does not need help walking while he uses a cane for ambulation, has not fallen in the last 3 months. 6. The patient is on Plavix. Does not take medicine for hypertension. 7. Opioid therapy is greater than 6 weeks; therefore, an opiate signed contract is on the chart. Risk assessment tool is low. Functional assessment is 26/70. 8. Recreational drug use, he denies. He is not a smoker and does not drink alcohol. According to the prescription monitoring system, the patient is filling his medications appropriately and is due for his medications today. PHYSICAL EXAMINATION: GENERAL: This is alert and orientated, well-nourished, exogenous obese 64-year-old gentleman who appears his stated age, placing his current pain score today at 5/10. HEENT: Normocephalic, atraumatic. Extraocular eye muscles are intact. Mucous membranes are moist. EXTREMITIES: No clubbing, no cyanosis. 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 He complains of burning and tingling in his bilateral arms and hands. MUSCULOSKELETAL: His upper extremity strength is weakened bilaterally due to his plexopathy. He walks with an antalgic gait due to his prosthetic limb. We reviewed the fact that opiate medications are being used to provide analgesia adequate to support activities of daily living, not attempting to achieve a specific pain score on the 0-10 Visual Analog Scale. The current opiate medications are providing sufficient analgesia to allow the patient to participate in activities of daily living. The patient is not exhibiting any aberrant behavior suggestive of drug diversion. The patient is not having any adverse reactions to medications. The patient is not suffering from daytime somnolence or mental acuity changes. The patient is managing opiate-induced constipation with appropriate jclb-yyj-vokparb agents and dietary considerations. The patient was counseled on concern for caution with operating a motor vehicle while using opiate medications. A physical exam was performed and the patient's functional status was evaluated. All patients with back pain were advised against the bed rest greater than 4 days and were advised to return to normal activities. Pain score assessment was noted and the treatment plan was reviewed with the patient. All current medications, both prescribed and OTC were reviewed and reconciled on the electronic medical record. Tobacco screening was accomplished and smoking cessation was advised when indicated. BMI was noted and diet/exercise modification was recommended for all patients following outside normal parameters. I reviewed with the patient today their responsibilities to [address] [address] PAIN MANAGEMENT CONSULTATION Name: EDWIN DAVIS III Room #: REG [facility]Ge Pires#: [id number] Admission: 05/14/19 Attend Phys: Latoya NANCY Klausjackie Discharge: Date of : 51 Report #: [id number] prescription medications, reviewed their responsibility to utilize medications only as prescribed by the physician. They are to seek and receive pain medications only from 1 physician group ( [facility]). They are to use 1 pharmacy and keep the clinic informed if they change pharmacies. Their responsibilities include making followup visits in a timely fashion and to avoid abrupt discontinuation of medication usage. Their responsibilities further include bringing their medications (bottles from the pharmacy with residual pills) to the visit for possible confirmation of pill counts and the patient understands it is their responsibility to submit to random drug screens to ensure both that the medications prescribed are present, and that no other controlled substances are present. All prescriptions provided today were generated electronically. IMPRESSION: 1. Brachial plexopathy. 2. Peripheral neuropathy. 3. Diabetes mellitus, on insulin and oral medications. 4. Complex chronic intractable pain. 5. Opioid-induced constipation. 6. Complex medical management under terms of written opioid agreement. PLAN: 1. We discussed treatment options with the patient today. The patient feels that his medications are very beneficial and would like a refill of his oxycodone and one emergency script for hydrocodone that he does use occasionally when he is out of town longer than expected. Scripts will be sent electronically to [facility] for [place] 10/325, #30; oxycodone 5, #120 for release today, 4-week and 8-week. 2. We will refill his Lyrica 225 mg b.i.d., #60 with 2 additional refills. The patient finds it very beneficial. He did run out of this medication this weekend and Dr. Edwin Maciel did call this in. He realized how beneficial that medicine is when he was off of it. The patient is no longer on gabapentin. 3. We will refill his nortriptyline 75 mg, #30 with 2 additional refills. 4. The patient started a new diet program with many supplements. I did encourage the patient to talk to his garment tag stringer regarding any interaction with these medications. He also feels that he is having slightly less constipation with this new regime of diet and supplements, though he still would us like to continue his Movantik 25 mg, #30 with 2 additional refills sent to his pharmacy in case he does have continued problems. He is not traveling currently, but will restart in May and that is when he has more constipation as well. 5. The patient will return in 3 months' time. The patient is seen today in collaboration with Dr. Edwin Maciel. <ELECTRONICALLY SIGNED> By: Latoya Reeves 05/15/19 0748 [id number] Latoya Reeves /darien
== END ==
LOC: PAIN 06:53
DX: G62.9 Polyneuropathy, unspecified (principal); E11.9 Type 2 diabetes mellitus without complications; G89.4 Chronic pain syndrome; K59.03 Drug induced constipation; T40.2X5A Adverse effect of other opioids, initial encounter; Z79.891 Long term (current) use of opiate analgesic

== ENCOUNTER → 2019-08-05 | Outpatient (CLI) | payer BC, OTHER ==
[~2019-08-05] VITALS: Ht 177.8 cm; Wt 119.3 kg
[2019-08-05 08:43] VITALS: BP 100/59
--- NOTE | 2019-08-05 08:55 | NUR ---
Pain Clinic Assessment: 1. History of Osteoarthritis: Not Applicable History of Rheumatoid Arthritis: Not Applicable 2. Height: 5 ft. 10 in. 177.8 cm. Weight: 263.0 lb. oz. 119.296 kg. Patient's BMI: 37.7 3. Vital Signs: BP: 100/59 Pulse: 74 Resp: 18 Temp: 02 Sat: 95 ECG Mon: 4. Pain Intensity: 10 WALKING > 50 FEET 5. Fall Risk: Dizziness: Y Needs help standing or walking: Y Fallen in the last 3 months: N Fall risk comments: 6. Patient on Blood Thinner: Clopidogrel Bisulf(Plavix 7. History of Hypertension: N 8. Opioid Therapy greater than 6 weeks: Y Opiate Contract Signed: 07/11/17 9. Risk Assessment Tool Provided: LOW RISK 0/3 10. Functional Assessment Tool: 11. Recreational Drug Use: Never Drug Type: Tobacco Use: Never Smoker Tobacco Type: Amount or Packs/day: How Many Years: Alcohol Use: No Frequency: Quant:
--- NOTE | 2019-08-05 12:50 | HPC ---
[facility] [address] [place] [address] PAIN MANAGEMENT CONSULTATION Name: EDWIN DAVIS III [id number] Admission: 08/05/19 Attend Phys: Latoya Reeves Discharge: Date of : 51 Report #: [id number] THIS REPORT FOR: cc: ADILENE KEMP Physician not on staff Latoya Reeves ~ DATE OF SERVICE: 08/05/2019 CHIEF COMPLAINT: Bilateral upper extremity pain secondary to brachial plexus and low back pain. HISTORY OF PRESENT ILLNESS: This is a pleasant 64-year-old gentleman who returns to the pain clinic today for refill of his medication that he uses to help treat his brachial plexopathy. He feels that that medication is very beneficial in helping his pain, though today he is reporting a new pain in his lower back, started about 3 weeks ago. He does not recall any injury or trauma. He believes he woke in the morning with pain in the middle of his low back that radiates down his posterior legs to his knees. He reports that walking has been very difficult greater than 50 feet. He does use a cane at all times due to his prosthetic limb. He said this has been very beneficial with his low back pain. He also reports he has seen the chiropractor, but that has not been beneficial. The patient reports his pain score 10/10 today. His most significant pain is in his lower back. He does though have pain in his hands and fingertips is a numbness and tingly and then a sharp, aching pain, cramping in his lower back and legs. Today, he is here for medication renewal and wondering if there is something we may be able to do for his lower back. The patient also reports he is going to start iron infusions this week. His hemoglobin is low. He has been having slight dizziness. His blood pressure has been slightly decreased. He is seeing his primary care doctor for that prior to this onset of new back pain. ALLERGIES: No known drug allergies. CURRENT LIST OF MEDICATIONS: Movantik, nortriptyline, Lyrica, oxycodone, hydrocodone, metoprolol, calcium, senna, Trulicity, fenofibrate, vitamin D, iron, Altace, Plavix, Lasix, aspirin, Lantus, Glucophage, Lipitor, and Ambien. PQRS: 1. He has a history of osteoarthritis in his lumbar spine. Denies any rheumatoid arthritis. 2. Height is 5 feet 10, weight is 263, BMI is 37. Vital signs 100/59, pulse is 74, respirations 18, oxygen sat is 95, pain score 10/10. Fall risk, [place] [address] PAIN MANAGEMENT CONSULTATION Name: EDWIN DAVIS [facility] Room #: FELIX Pires#: [id number] Admission: 08/05/19 Attend Phys: Latoya Reeves Discharge: Date of : 51 Report #: [id number] of dizziness, does use a cane for ambulation, has not fallen in the last 3 months. The patient is on Plavix. Does take medicine for hypertension. Opioid therapy is greater than 6 weeks; therefore, an opioid signed contract is on the chart. Risk assessment tool is low. Functional assessment is 26/70. Recreational drugs, he denies. He is not a smoker and does not drink alcohol. According to the prescription monitoring system, the patient is filling appropriately for his medications in a timely fashion. PHYSICAL EXAMINATION: GENERAL: This is alert and orientated, well-nourished. He is on exogenous obese 64-year-old gentleman who appears his stated age, placing his current pain score 10/10. HEENT: Normocephalic, atraumatic. Extraocular eye muscles are intact. Mucous membranes are moist. EXTREMITIES: No clubbing, no cyanosis. He has a prosthetic limb on his left lower extremity. He has burning and tingling in his bilateral hands. MUSCULOSKELETAL: Low back pain radiating down his posterior legs following the L4-L5 and L5-S1 dermatomal distribution. Lower extremity strength judged to be 5/5. He has negative straight leg raising. Tenderness in his lumbar sacral region. He walks with an antalgic gait due to his prosthetic limb using a cane at all times. We reviewed the fact that opiate medications are being used to provide analgesia adequate to support activities of daily living, not attempting to achieve a specific pain score on the 0-10 Visual Analog Scale. The current opiate medications are providing sufficient analgesia to allow the patient to participate in activities of daily living. The patient is not exhibiting any aberrant behavior suggestive of drug diversion. The patient is not having any adverse reactions to medications. The patient is not suffering from daytime somnolence or mental acuity changes. The patient is managing opiate-induced constipation with appropriate rrje-[id number]-[id number] agents and dietary considerations. The patient was counseled on concern for caution with operating a motor vehicle while using opiate medications. A physical exam was performed and the patient's functional status was evaluated. All patients with back pain were advised against the bed rest greater than 4 days and were advised to return to normal activities. Pain score assessment was noted and the treatment plan was reviewed with the patient. All current medications, both prescribed and OTC were reviewed and reconciled on the electronic medical record. Tobacco screening was accomplished and smoking cessation was advised when indicated. BMI was noted and diet/exercise modification was recommended for all patients following outside normal parameters. I reviewed with the patient today their responsibilities to safeguard [facility] [address] [place] [address] PAIN MANAGEMENT CONSULTATION Name: EDWIN DAVIS III Room #: REG [facility].#: [id number] Admission: 08/05/19 Attend Phys: Latoya Reeves Discharge: Date of : 51 Report #: [id number] prescription medications, reviewed their responsibility to utilize medications only as prescribed by the physician. They are to seek and receive pain medications only from 1 physician group ( [facility]). They are to use 1 pharmacy and keep the clinic informed if they change pharmacies. Their responsibilities include making followup visits in a timely fashion and to avoid abrupt discontinuation of medication usage. Their responsibilities further include bringing their medications (bottles from the pharmacy with residual pills) to the visit for possible confirmation of pill counts and the patient understands it is their responsibility to submit to random drug screens to ensure both that the medications prescribed are present, and that no other controlled substances are present. All prescriptions provided today were generated electronically. Imaging: AP and Lateral lumbar spine- progression of caudal lumbar spondylosis with progression of disc desiccation at L5-S1 which is not moderate with mild to moderate cauda facet artrosis. No evidence of compression fracture or spondylolisthesis. PLAN: 1. We discussed treatment options with the patient today. Based on his new pain of lower back and lumbar radiculopathy, we will order a plain lumbar series, AP and lateral. First, we may proceed to an MRI depending on the results. We will also have the patient start physical therapy. He will stop and make an appointment today prior to leaving the facility. 2. The patient meds will be refilled on Movantik 25 mg daily, #30 with 2 additional refills; nortriptyline 75 mg, #30 with 2 additional refills; Lyrica 225 mg b.i.d. with 2 refills and oxycodone 5 mg 120 for today, 4-week and 8-week release. These will be sent electronically by Dr. Edwin Maciel. 3. The patient is not needing his hydrocodone. He has not been traveling recently due to the coronavirus as well as new onset of back pain. 4. The patient is seen in collaboration with Dr. Edwin Maciel. The patient will be in contact by phone after we receive his x-ray results. <ELECTRONICALLY SIGNED> By: Latoya Reeves 08/05/19 1250 [id number] Latoya Reeves /nt
== END ==
LOC: PAIN 06:44 → RAD 06:44 → PAIN 10:47
DX: M47.26 Other spondylosis with radiculopathy, lumbar region (principal); M48.54XA Collapsed vertebra, not elsewhere classified, thoracic region, initial encounter for fracture; M48.07 Spinal stenosis, lumbosacral region; M12.88 Other specific arthropathies, not elsewhere classified, other specified site

== ENCOUNTER → 2019-08-08 | Outpatient (CLI) | payer BC | LOC: MRI 07:08 | DX: M51.16 Intervertebral disc disorders with radiculopathy, lumbar region (principal); M47.26 Other spondylosis with radiculopathy, lumbar region; N28.1 Cyst of kidney, acquired ==

== ENCOUNTER → 2019-11-06 | Outpatient (CLI) | payer BC, OTHER | LOC: SJCVC 10:52 | PROVIDERS: ATTEND Internal Medicine Cardiovascular Disease | DX: R94.31 Abnormal electrocardiogram [ECG] [EKG] (principal); I44.0 Atrioventricular block, first degree; I45.2 Bifascicular block; I25.10 Atherosclerotic heart disease of native coronary artery without angina pectoris; I10 Essential (primary) hypertension; E78.00 Pure hypercholesterolemia, unspecified; I73.9 Peripheral vascular disease, unspecified; I35.0 Nonrheumatic aortic (valve) stenosis; Z95.1 Presence of aortocoronary bypass graft; Z72.0 Tobacco use; Z79.899 Other long term (current) drug therapy ==

== ENCOUNTER → 2019-12-08 | Outpatient (CLI) | payer BC, OTHER ==
[~2019-12-08] MED LIST changes: +FLOMAX0.4 MG PO
== END ==
LOC: SJCVCIMAG 08:53
PROVIDERS: ATTEND Nuclear Medicine Nuclear Cardiology
DX: I65.23 Occlusion and stenosis of bilateral carotid arteries (principal); I70.201 Unspecified atherosclerosis of native arteries of extremities, right leg; I10 Essential (primary) hypertension; E78.00 Pure hypercholesterolemia, unspecified; E11.9 Type 2 diabetes mellitus without complications; Z72.0 Tobacco use

== ENCOUNTER → 2020-01-28 | Outpatient (CLI) | payer BC, OTHER ==
[~2020-01-28] VITALS: Ht 177.8 cm; Wt 118.3 kg
[2020-01-28 10:19] VITALS: BP 121/51
--- NOTE | 2020-01-28 15:08 | HPC ---
[facility] [address] [place] [address] PAIN MANAGEMENT CONSULTATION Name: EDWIN DAVIS III Room #: REG [facility].#: [id number] Admission: 01/28/20 Attend Phys: Latoya Reeves Discharge: Date of : 51 Report #: [id number] THIS REPORT FOR: cc: ADILENE FLORES Physician not on staff Latoya Reeves ~ CC:Edwin Maciel DO DATE OF SERVICE: 01/28/2020 CHIEF COMPLAINT: Bilateral upper extremity pain secondary to brachial plexus and low back pain. HISTORY OF PRESENT ILLNESS: This is a very pleasant 64-year-old gentleman who returns to the pain clinic for refills of his medication and discussion of his opioid medication. Since the COVID outbreak, which was the last time we saw him in early July, the patient has weaned himself off his opioid medications that he was taking a Percocet up to maximum 4 times a day. He reports today he has been off that medication for several months, rating his pain score at 5/10 Today, he is requesting refills of Lyrica and nortriptyline to help his ongoing hand pain and low back pain. He states that it continues to be a burning tingly sharp pain that is intermittent. It is always there, but he has not been traveling due to the COVID outbreak, so he has been at home. He feels that prolonged standing increased his lower back pain. The patient also reports today that he has been having diarrhea up to 3 times a day for the last month and a half to 2 months. He has stopped his Movantik, Senokot and Gonzalez' Milk of Magnesia since stopping his opioids, but is unsure why he continues to have diarrhea. He does report that he did have a urinary tract infection and was on antibiotics for about a week. ALLERGIES: No known drug allergies. CURRENT LIST OF MEDICATIONS: Flomax, nortriptyline 75 mg at bedtime, Lyrica 25 mg b.i.d., metoprolol, Caltrate, fenofibrate, Trulicity, vitamin D, iron, Plavix, Lasix, aspirin, Lantus, metformin, Lipitor, and Ambien. PQRS: 1. He denies any osteoarthritis or rheumatoid arthritis. 2. Height is 5 feet 10 inches, weight is 260 and BMI is 37. 3. Vital signs 121/51, pulse is 81, respirations 20, oxygen sat is 98%. 4. Pain score is 5/10. 5. Denies dizziness. Does need help walking, has not fallen in the last 3 months. The patient is on Plavix and does not take medicine for hypertension. 6. Opioid therapy is greater than 6 weeks; therefore, an opioid signed contract is on the chart. Risk assessment is low. [place] [address] PAIN MANAGEMENT CONSULTATION Name: EDWIN DAVIS [facility] Room #: REG [place] Pires#: [id number] Admission: 01/28/20 Attend Phys: Latoya Reeves Discharge: Date of : 51 Report #: [id number] 7. Recreational drug use, he denies. He is not a smoker and does not drink alcohol. According to the prescription monitoring system, he has not filled any opioids since July. PHYSICAL EXAMINATION: GENERAL: This is alert and orientated, well-developed, well-nourished 64-year-old gentleman, exogenous obese gentleman who is rating his pain score today at 5/10. HEENT: Normocephalic, atraumatic. Extraocular eye muscles are intact. Mucous membranes are moist. He is wearing a mask. ABDOMEN: Very active bowel sounds. Complains of ongoing diarrhea. 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 Pain radiates from his lower back into his posterior legs down the L4-L5 and L5-S1 dermatomal distribution. He has an antalgic gait due to his prosthetic limb and uses a cane at all times. IMPRESSION: 1. Brachial plexopathy. 2. Peripheral neuropathy. 3. Diabetes mellitus, on insulin and oral medications. 4. Complex chronic intractable pain. PLAN: 1. We discussed treatment options with the patient today, congratulated him on weaning off his opioid medications. He seems to adjust it quite well, continues needing his Lyrica and nortriptyline for his ongoing neuropathy. The patient reports that he has only been getting gabapentin from his pharmacy and not the Lyrica. We will renew his Lyrica 225 mg b.i.d., quantity 60 with 5 additional refills for him today and instructing the pharmacy not to fill any gabapentin. He feels that the Lyrica is much more beneficial in controlling his neuropathy. 2. We will continue him on his nortriptyline 75 mg at bedtime, quantity 30 with 5 additional refills were given. 3. Since the patient is off his opioid medications, we will discontinue his opioid-induced constipation, in fact he has been having diarrhea the last few months. I encouraged him to contact his primary care doctor. I was wondering if he may have Clostridium difficile from unknown reason. The patient reported he had a urinary tract infection, which he was on antibiotics. I explained to him that that may be the cause of his diarrhea issues, encouraged him to make an appointment with his primary care doctor and take a stool specimen to be tested for Clostridium difficile. I also encouraged him to have them check other things. He may have a parasite because he did travel extensively overseas. In the meantime, I encouraged him to take one probiotic on a daily basis. 4. The patient verbalized understanding. He will return in 6 months as needed [facility] [address] [place] [address] PAIN MANAGEMENT CONSULTATION Name: EDWIN DAVIS III Room #: REG [place] Pires#: [id number] Admission: 01/28/20 Attend Phys: Latoya Reeves Discharge: Date of : 51 Report #: [id number] for an appointment. The patient is seen today in collaboration with Dr. Edwin Maciel. <ELECTRONICALLY SIGNED> By: Latoya Reeves 01/28/20 1508 [id number] 1421 Latoya Reeves /darien
== END ==
LOC: PAIN 01-13 06:57
PROVIDERS: ATTEND Clinical Nurse Specialist Adult Health
DX: G62.9 Polyneuropathy, unspecified (principal); M79.642 Pain in left hand; M79.641 Pain in right hand; G54.0 Brachial plexus disorders; E11.9 Type 2 diabetes mellitus without complications; G89.29 Other chronic pain; M54.5 Low back pain; Z79.4 Long term (current) use of insulin; Z79.899 Other long term (current) drug therapy

== ENCOUNTER → 2020-05-07 | Outpatient (CLI) | payer BC, OTHER | LOC: SJCVCIMAG 08:02 | PROVIDERS: ATTEND Internal Medicine Cardiovascular Disease | DX: I45.2 Bifascicular block (principal); I25.10 Atherosclerotic heart disease of native coronary artery without angina pectoris; Z79.899 Other long term (current) drug therapy; Z86.73 Personal history of transient ischemic attack (TIA), and cerebral infarction without residual deficits ==

== ENCOUNTER → 2020-05-18 | Outpatient (CLI) | payer BC, OTHER | LOC: SJCVCIMAG 08:00 | PROVIDERS: ATTEND Nuclear Medicine Nuclear Cardiology | DX: I65.23 Occlusion and stenosis of bilateral carotid arteries (principal); I70.201 Unspecified atherosclerosis of native arteries of extremities, right leg; I77.9 Disorder of arteries and arterioles, unspecified; Z95.828 Presence of other vascular implants and grafts; Z72.0 Tobacco use ==

== ENCOUNTER → 2020-05-25 | Outpatient (CLI) | payer BC, OTHER ==
[~2020-05-25] VITALS: Ht 177.8 cm; Wt 123.2 kg
[2020-05-25 11:10] VITALS: BP 105/66
--- NOTE | 2020-05-25 11:21 | NUR ---
Pain Clinic Assessment: 1. History of Osteoarthritis: Not Applicable History of Rheumatoid Arthritis: Not Applicable 2. Height: 5 ft. 10 in. 177.8 cm. Weight: 271.6 lb. oz. 123.197 kg. Patient's BMI: 39.0 3. Vital Signs: BP: 105/66 Pulse: 73 Resp: 16 Temp: 02 Sat: 100 ECG Mon: 4. Pain Intensity: 2 5. Fall Risk: Dizziness: N Needs help standing or walking: Y Fallen in the last 3 months: N Fall risk comments: 6. Patient on Blood Thinner: Clopidogrel Bisulf(Plavix 7. History of Hypertension: N 8. Opioid Therapy greater than 6 weeks: Y Opiate Contract Signed: 07/11/17 9. Risk Assessment Tool Provided: LOW RISK 0/3 10. Functional Assessment Tool: 11. Recreational Drug Use: Never Drug Type: Tobacco Use: Never Smoker Tobacco Type: Amount or Packs/day: How Many Years: Alcohol Use: No Frequency: Quant:
--- NOTE | 2020-05-25 14:27 | HPC ---
[facility] [address] [place] [address] PAIN MANAGEMENT CONSULTATION Name: EDWIN DAVIS III [facility] [id number] Admission: 05/25/20 Attend Phys: Latoya Reeves Discharge: Date of : 51 Report #: [id number] THIS REPORT FOR: cc: ADILENE KEMP Physician not on staff Latoya Reeves ~ DATE OF SERVICE: 05/25/2020 CHIEF COMPLAINT: Bilateral upper extremity pain secondary to brachial plexus and low back pain. HISTORY OF PRESENT ILLNESS: This is a very pleasant 65-year-old gentleman who returns today for refills of his medications. The patient continues to be off his opioid medications. He was able to wean down earlier this year, during the beginning of since he has not been traveling. He believes that his pain is well controlled with the Lyrica as well as nortriptyline, rating his pain score at 2/10. Pain is most significant in his hands and fingertips, though he does have some ongoing low back pain. Today, he states it is a burning, tingly, sharp pain that is worse with any activity believes the medications are beneficial in helping him function at a high level due to his pain. The patient's major complaint today is constipation. He continues on Movantik that he uses for this despite being on any opioids. He is also wondering if there are any alternatives to this medication that he may trial. ALLERGIES: No known drug allergies. CURRENT LIST OF MEDICATIONS: Nortriptyline 75 mg at bedtime, Lyrica 225 mg b.i.d., metoprolol, Caltrate, fenofibrate, Trulicity, vitamin D, iron, Altace, Plavix, Lasix, aspirin, Lantus, metformin, atorvastatin, Ambien and Movantik. PQRS: 1. He denies osteo or rheumatoid arthritis. 2. Height is 5 feet 10 inches, weight is 271, BMI is 39. 3. Vital signs; blood pressure 105/66, pulse is 73, respirations 16, oxygen sat is 100, pain score is 2/10. 4. Fall risk. Denies dizziness. Does use a cane for ambulation, has not fallen in the last 3 months. He is on Plavix and does not take medicine for hypertension. He is no longer on opioids. 5. His risk assessment is low. Functional assessment is /70. 6. Recreational drug use, he denies. He is not a smoker and does not drink alcohol. PHYSICAL EXAMINATION: GENERAL: This is alert and orientated, morbidly obese 65-year-old gentleman who appears his stated age, placing his current pain score today at 2/10. [address] [address] PAIN MANAGEMENT CONSULTATION Name: EDIWN DAVIS III Room #: REG [place] Pires#: [id number] Admission: 05/25/20 Attend Phys: Latoya Reeves Discharge: Date of : 51 Report #: [id number] HEENT: Normocephalic, atraumatic. Extraocular eye muscles are intact. He is wearing a mask. 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 Burning and tingling in his hands bilaterally. Pain radiates in his low back following the L4-L5 and L5-S1 dermatomal distribution. He has an antalgic gait and uses a cane for ambulation. IMPRESSION: 1. Brachial plexopathy. 2. Peripheral neuropathy. 3. Diabetes mellitus. 4. Complex chronic intractable pain. PLAN: 1. We discussed treatment options with the patient today. The patient is requesting Movantik despite no longer being on any opioids. He has significant constipation. We did discuss [id number] options such as MiraLax to try on a daily basis or every other day, but we will send a script electronically for his Movantik 25 mg. If the insurance company does not approve it, he will try the MiraLax. He does take Senokot daily as well. 2. He does continue the Lyrica and nortriptyline and finds these beneficial with his burning and tingly sensation in his hands. These are not needed today, but if he needs a refill prior to our next visit, we will send those electronically. 3. The patient is seen in collaboration with Dr. Edwin Maciel who did see the patient as well today. <ELECTRONICALLY SIGNED> By: Latoya Reeves 05/25/20 1427 [id number] Latoya Reeves /nt
== END ==
LOC: PAIN 06:54
PROVIDERS: ATTEND Clinical Nurse Specialist Adult Health
DX: G54.0 Brachial plexus disorders (principal); M54.5 Low back pain; G62.9 Polyneuropathy, unspecified; E11.9 Type 2 diabetes mellitus without complications; G89.29 Other chronic pain

== ENCOUNTER → 2020-06-07 | Outpatient (CLI) | payer BC, OTHER | LOC: HYPER 08:29 | PROVIDERS: ATTEND Emergency Medicine Emergency Medical Services | DX: E11.622 Type 2 diabetes mellitus with other skin ulcer (principal); L89.893 Pressure ulcer of other site, stage 3; L97.821 Non-pressure chronic ulcer of other part of left lower leg limited to breakdown of skin; R21 Rash and other nonspecific skin eruption; E11.51 Type 2 diabetes mellitus with diabetic peripheral angiopathy without gangrene; E11.42 Type 2 diabetes mellitus with diabetic polyneuropathy; E66.9 Obesity, unspecified; E78.5 Hyperlipidemia, unspecified; I25.10 Atherosclerotic heart disease of native coronary artery without angina pectoris; Z89.512 Acquired absence of left leg below knee; Z86.73 Personal history of transient ischemic attack (TIA), and cerebral infarction without residual deficits; Z95.1 Presence of aortocoronary bypass graft; Z68.37 Body mass index [BMI] 37.0-37.9, adult ==

== ENCOUNTER → 2020-07-15 | Outpatient (CLI) | payer BC, OTHER | LOC: HYPER 08:09 | PROVIDERS: ATTEND Emergency Medicine | DX: E11.622 Type 2 diabetes mellitus with other skin ulcer (principal); L89.893 Pressure ulcer of other site, stage 3; L97.821 Non-pressure chronic ulcer of other part of left lower leg limited to breakdown of skin; E11.621 Type 2 diabetes mellitus with foot ulcer; L97.512 Non-pressure chronic ulcer of other part of right foot with fat layer exposed; L97.511 Non-pressure chronic ulcer of other part of right foot limited to breakdown of skin; R21 Rash and other nonspecific skin eruption; E11.51 Type 2 diabetes mellitus with diabetic peripheral angiopathy without gangrene; E11.42 Type 2 diabetes mellitus with diabetic polyneuropathy; E66.9 Obesity, unspecified; E78.5 Hyperlipidemia, unspecified; I25.10 Atherosclerotic heart disease of native coronary artery without angina pectoris; Z89.512 Acquired absence of left leg below knee; Z86.73 Personal history of transient ischemic attack (TIA), and cerebral infarction without residual deficits; Z95.1 Presence of aortocoronary bypass graft; Z68.37 Body mass index [BMI] 37.0-37.9, adult ==

== ENCOUNTER → 2020-07-16 | Outpatient (CLI) | payer BC, OTHER ==
[~2020-07-16] MED LIST changes: +CVS SENNA PLUS1 EACH PO; +PROSCAR 5MG TABL5 M1 PO; +TOPROL XL50 MG PO
== END ==
LOC: SJCVCIMAG 09:26
PROVIDERS: ATTEND Nuclear Medicine Nuclear Cardiology
DX: I70.201 Unspecified atherosclerosis of native arteries of extremities, right leg (principal); M79.89 Other specified soft tissue disorders; Z95.828 Presence of other vascular implants and grafts; Z72.0 Tobacco use

== ENCOUNTER → 2020-07-21 | Outpatient (CLI) | payer BC, OTHER ==
[~2020-07-21] VITALS: Ht 177.8 cm; Wt 120.2 kg
[2020-07-21] VITALS (9 sets, daily range): BP systolic 85–121; BP diastolic 53–68
[2020-07-21 08:20] LABS: HEMATOCRIT 44.5 % (42.0-52.0); HEMOGLOBIN 14.6 gm/dL (14.0-18.0); MCH 27.9 pg (26.0-34.0); MCHC 32.9 g/dL (28.0-37.0); MCV 84.8 fL (80.0-100.0); RBC 5.24 mil/uL (4.50-6.00); RDW 15.1 % (10.5-14.5); WBC 10.3 thou/uL (4.0-11.0)
[2020-07-21 08:37] LABS: CREATININE 1.5 mg/dL (0.7-1.3)
[2020-07-21 08:39] LABS: POTASSIUM 4.8 mmol/L (3.5-5.1)
== END | disposition home or self-care (01) ==
LOC: CATH 07:05
PROVIDERS: ATTEND Nuclear Medicine Nuclear Cardiology
DX: I73.9 Peripheral vascular disease, unspecified (principal); I70.1 Atherosclerosis of renal artery; I10 Essential (primary) hypertension; I25.10 Atherosclerotic heart disease of native coronary artery without angina pectoris; E78.5 Hyperlipidemia, unspecified; E11.9 Type 2 diabetes mellitus without complications; I42.9 Cardiomyopathy, unspecified; I25.2 Old myocardial infarction; E66.9 Obesity, unspecified; Z98.890 Other specified postprocedural states; Z79.899 Other long term (current) drug therapy; Z79.4 Long term (current) use of insulin; Z86.73 Personal history of transient ischemic attack (TIA), and cerebral infarction without residual deficits; Z79.82 Long term (current) use of aspirin; Z82.49 Family history of ischemic heart disease and other diseases of the circulatory system; Z88.8 Allergy status to other drugs, medicaments and biological substances

== ENCOUNTER → 2020-07-22 | Outpatient (CLI) | payer BC, OTHER | LOC: HYPER 11:21 | PROVIDERS: ATTEND Emergency Medicine | DX: E11.621 Type 2 diabetes mellitus with foot ulcer (principal); L97.512 Non-pressure chronic ulcer of other part of right foot with fat layer exposed; R21 Rash and other nonspecific skin eruption; E11.51 Type 2 diabetes mellitus with diabetic peripheral angiopathy without gangrene; E11.42 Type 2 diabetes mellitus with diabetic polyneuropathy; E66.9 Obesity, unspecified; E78.5 Hyperlipidemia, unspecified; I25.10 Atherosclerotic heart disease of native coronary artery without angina pectoris; Z89.512 Acquired absence of left leg below knee; Z86.73 Personal history of transient ischemic attack (TIA), and cerebral infarction without residual deficits; Z95.1 Presence of aortocoronary bypass graft; Z68.37 Body mass index [BMI] 37.0-37.9, adult ==

== ENCOUNTER → 2020-08-05 | Outpatient (CLI) | payer BC, OTHER | LOC: HYPER 08:03 | PROVIDERS: ATTEND Emergency Medicine | DX: E11.621 Type 2 diabetes mellitus with foot ulcer (principal); L97.512 Non-pressure chronic ulcer of other part of right foot with fat layer exposed; L97.511 Non-pressure chronic ulcer of other part of right foot limited to breakdown of skin; E11.622 Type 2 diabetes mellitus with other skin ulcer; L89.893 Pressure ulcer of other site, stage 3; L97.821 Non-pressure chronic ulcer of other part of left lower leg limited to breakdown of skin; R21 Rash and other nonspecific skin eruption; E11.51 Type 2 diabetes mellitus with diabetic peripheral angiopathy without gangrene; E11.42 Type 2 diabetes mellitus with diabetic polyneuropathy; E66.9 Obesity, unspecified; E78.5 Hyperlipidemia, unspecified; I25.10 Atherosclerotic heart disease of native coronary artery without angina pectoris; Z89.512 Acquired absence of left leg below knee; Z86.73 Personal history of transient ischemic attack (TIA), and cerebral infarction without residual deficits; Z95.1 Presence of aortocoronary bypass graft; Z68.37 Body mass index [BMI] 37.0-37.9, adult ==

== ENCOUNTER → 2020-09-02 | Outpatient (CLI) | payer BC, OTHER | LOC: HYPER 08:41 | PROVIDERS: ATTEND Emergency Medicine | DX: E11.621 Type 2 diabetes mellitus with foot ulcer (principal); L97.512 Non-pressure chronic ulcer of other part of right foot with fat layer exposed; E11.622 Type 2 diabetes mellitus with other skin ulcer; L89.893 Pressure ulcer of other site, stage 3; L97.121 Non-pressure chronic ulcer of left thigh limited to breakdown of skin; R21 Rash and other nonspecific skin eruption; E11.51 Type 2 diabetes mellitus with diabetic peripheral angiopathy without gangrene; E11.42 Type 2 diabetes mellitus with diabetic polyneuropathy; E66.9 Obesity, unspecified; E78.5 Hyperlipidemia, unspecified; I25.10 Atherosclerotic heart disease of native coronary artery without angina pectoris; Z89.512 Acquired absence of left leg below knee; Z86.73 Personal history of transient ischemic attack (TIA), and cerebral infarction without residual deficits; Z95.1 Presence of aortocoronary bypass graft; Z68.37 Body mass index [BMI] 37.0-37.9, adult ==

== ENCOUNTER → 2020-09-17 | Outpatient (CLI) | payer BC, OTHER | LOC: HYPER 08:03 | PROVIDERS: ATTEND Emergency Medicine Emergency Medical Services | DX: E11.621 Type 2 diabetes mellitus with foot ulcer (principal); L97.511 Non-pressure chronic ulcer of other part of right foot limited to breakdown of skin; S80.821A Blister (nonthermal), right lower leg, initial encounter; E11.40 Type 2 diabetes mellitus with diabetic neuropathy, unspecified; E11.51 Type 2 diabetes mellitus with diabetic peripheral angiopathy without gangrene; E11.69 Type 2 diabetes mellitus with other specified complication; L84 Corns and callosities; I25.10 Atherosclerotic heart disease of native coronary artery without angina pectoris; E78.5 Hyperlipidemia, unspecified; E66.9 Obesity, unspecified; Z68.37 Body mass index [BMI] 37.0-37.9, adult; Z86.73 Personal history of transient ischemic attack (TIA), and cerebral infarction without residual deficits; Z79.899 Other long term (current) drug therapy; Z89.512 Acquired absence of left leg below knee; X58.XXXA Exposure to other specified factors, initial encounter; Y93.89 Activity, other specified; Y92.89 Other specified places as the place of occurrence of the external cause; Y99.8 Other external cause status ==

== ENCOUNTER → 2020-10-22 | Outpatient (CLI) | payer BC, OTHER | LOC: SJCVCIMAG 12:30 | PROVIDERS: ATTEND Nuclear Medicine Nuclear Cardiology | DX: M79.661 Pain in right lower leg (principal); M79.89 Other specified soft tissue disorders ==

== ENCOUNTER → 2020-10-26 | Outpatient (CLI) | payer BC, OTHER | LOC: HYPER 07:48 | PROVIDERS: ATTEND Emergency Medicine | DX: E11.621 Type 2 diabetes mellitus with foot ulcer (principal); L97.511 Non-pressure chronic ulcer of other part of right foot limited to breakdown of skin; L97.121 Non-pressure chronic ulcer of left thigh limited to breakdown of skin; S80.821D Blister (nonthermal), right lower leg, subsequent encounter; E11.42 Type 2 diabetes mellitus with diabetic polyneuropathy; E11.51 Type 2 diabetes mellitus with diabetic peripheral angiopathy without gangrene; L84 Corns and callosities; I25.10 Atherosclerotic heart disease of native coronary artery without angina pectoris; E78.5 Hyperlipidemia, unspecified; E66.9 Obesity, unspecified; Z68.37 Body mass index [BMI] 37.0-37.9, adult; Z86.73 Personal history of transient ischemic attack (TIA), and cerebral infarction without residual deficits; Z89.512 Acquired absence of left leg below knee; X58.XXXD Exposure to other specified factors, subsequent encounter; R60.0 Localized edema ==

== ENCOUNTER → 2020-12-14 | Outpatient (CLI) | payer BC, OTHER ==
[~2020-12-14] VITALS: Ht 177.8 cm; Wt 126.9 kg
[2020-12-14 12:51] VITALS: BP 148/79
--- NOTE | 2020-12-14 13:38 | NUR ---
Pain Clinic Assessment: 1. History of Osteoarthritis: Not Applicable History of Rheumatoid Arthritis: Not Applicable 2. Height: 5 ft. 10 in. 177.8 cm. Weight: 279.8 lb. oz. 126.917 kg. Patient's BMI: 40.1 3. Vital Signs: BP: 148/79 Pulse: 97 Resp: 18 Temp: 02 Sat: 97 ECG Mon: 4. Pain Intensity: 2 5. Fall Risk: Dizziness: N Needs help standing or walking: Y Fallen in the last 3 months: N Fall risk comments: 6. Patient on Blood Thinner: Clopidogrel Bisulf(Plavix 7. History of Hypertension: N 8. Opioid Therapy greater than 6 weeks: Y Opiate Contract Signed: 07/11/17 9. Risk Assessment Tool Provided: LOW RISK 0/3 10. Functional Assessment Tool: 11. Recreational Drug Use: Never Drug Type: Tobacco Use: Never Smoker Tobacco Type: Amount or Packs/day: How Many Years: Alcohol Use: No Frequency: Quant:
--- NOTE | 2020-12-15 13:44 | HPC ---
[facility] [address] [place] [address] PAIN MANAGEMENT CONSULTATION Name: EDWIN DAVIS [id number] Admission: 12/14/20 Attend Phys: Latoya Reeves Discharge: Date of : 51 Report #: [id number] THIS REPORT FOR: cc: NO FAMILY PHYSICIAN or PCP NO FAMILY PHYSICIAN or PCP Latoya Reeves ~ cc: Edwin Maciel DO, Marcy Kot DATE OF SERVICE: 12/14/2020 CHIEF COMPLAINT: Bilateral upper extremity pain, secondary to brachial plexus and low back pain. HISTORY OF PRESENT ILLNESS: This is a very pleasant 65-year-old gentleman who returns to the pain clinic today for renewal of his medication that he uses to help treat his ongoing neuropathy. The patient reports his pain score a 2/10 today. It has been slightly higher at times when his stress is elevated, but he feels like he is doing quite well on his Lyrica and nortriptyline. The patient's most problematic area is his upper extremity and his fingertips and hands, but he occasionally has low back pain, especially when he has had prolonged walking. He describes his pain as a burning tingly sensation that at times can be very sharp. Again, it is worse with activity, but his medications to alleviate the majority of his symptoms. The patient does complain of some constipation again today. He has a longstanding history of this problem. He is not on any opioids, so therefore his Movantik was not covered. The patient states he has tried Metamucil in the past. He typically has a bowel movement every 3 days per his report. ALLERGIES: No known drug allergies. CURRENT LIST OF MEDICATIONS: Lyrica 225 mg b.i.d., nortriptyline 75 mg at bedtime, Senokot, Flomax, metoprolol, Proscar, calcium, fenofibrate, Trulicity, iron, Plavix, Lasix, aspirin, Lantus, Glucophage, Lipitor, Ambien. PQRS: 1. He denies any osteoarthritis or rheumatoid arthritis. Height is 5 feet 10 inches, weight is 279. BMI is 40. 2. Vital signs 148/79, pulse is 97, respirations 18, oxygen sat is 97%. 3. Pain score is 2/10. 4. Denies dizziness. Does use a cane with ambulation due to his amputee [id number]-ocy-jgnj on his left leg. Denies any falls. 5. The patient remains on Plavix and does take medicine for hypertension. 6. He does not take any opioids, he weaning himself off. RISK ASSESSMENT: Low. [address] [address] PAIN MANAGEMENT CONSULTATION Name: EDWIN DAVIS Room #: REG [place] Pires#: [id number] Admission: 12/14/20 Attend Phys: Latoya Reeves Discharge: Date of : 51 Report #: [id number] FUNCTIONAL ASSESSMENT: . RECREATIONAL DRUG USE: He denies. He is not a smoker, does not drink alcohol. According to the prescription monitoring system, he is not on any opioids any longer. He does take a controlled substance of Lyrica from our physicians, which is a scheduled medication for his neuropathy. PHYSICAL EXAMINATION: GENERAL: This is alert and orientated, very pleasant 65-year-old gentleman who appears his stated age, rating his pain score today a 2/10. He is a good historian. HEENT: Normocephalic, atraumatic. Extraocular eye muscles are intact. Mucous membranes are moist. MUSCULOSKELETAL: He has burning and tingly sensation in his hands bilaterally. Pain radiates down his arms. 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 Tenderness in his lumbosacral region that radiates down the L4-L5, L5-S1 dermatomal distribution. IMPRESSION: 1. Brachial plexopathy. 2. Peripheral neuropathy. 3. Diabetes mellitus. 4. Low back pain. 5. Complex chronic intractable pain. PLAN: 1. We discussed treatment options with the patient today. The patient finds the Lyrica very beneficial in controlling his neuropathy. He does report being out for a few days and had to take bvqd-krb-czexldt Nervive. He said at least that medication prevented him from excruciating pain, but is very thankful for the Lyrica tablets. We will renew that medication for 225 mg p.o. b.i.d., #60 with 5 additional refills. We will also continue his nortriptyline 75 mg #1 at bedtime, quantity 30 with 5 additional refills. 2. We did discuss his constipation issues in great length. Movantik was beneficial for him, but he is no longer an opioid medications, so that medication is not covered and would not be beneficial. He had tried Metamucil in the past and does take Senokot on a nightly basis, but continues to have problems. I encouraged him to take MiraLax 1 capful at bedtime. He may increase this to twice a day as needed. The patient will return in 6 months or as needed for medication refills. Time spent with the patient in consultation, reviewing recent studies and clinical notes, physical examination and correlation of findings and medical [address] [address] PAIN MANAGEMENT CONSULTATION Name: EDWIN DAVIS Room #: [facility] Pranay#: [id number] Admission: 12/14/20 Attend Phys: Latoya Reeves Discharge: Date of : 51 Report #: [id number] documentation to determine possible treatments 12 minutes. Time spent in preparation for appointment reviewing prescription monitoring system, reviewing previous records and proposed treatment options, reviewing current medications is 5 minutes. Time spent preparing and sending electronic prescriptions with collaborating physician, Dr. Edwin Maciel, documentation of visit and plan of treatment is 5 minutes. Total time spent 22 minutes. <ELECTRONICALLY SIGNED> By: Latoya Reeves 12/15/20 [id number] Latoya Reeves /nt
== END ==
LOC: PAIN 08:24
PROVIDERS: ATTEND Clinical Nurse Specialist Adult Health
DX: G54.0 Brachial plexus disorders (principal); E11.40 Type 2 diabetes mellitus with diabetic neuropathy, unspecified; M54.5 Low back pain; G89.4 Chronic pain syndrome; Z79.891 Long term (current) use of opiate analgesic; Z79.899 Other long term (current) drug therapy

== ENCOUNTER → 2020-12-14 | Outpatient (CLI) | payer BC, OTHER | LOC: SJCVCIMAG 08:55 | PROVIDERS: ATTEND Nuclear Medicine Nuclear Cardiology | DX: I65.23 Occlusion and stenosis of bilateral carotid arteries (principal); E04.1 Nontoxic single thyroid nodule; I70.201 Unspecified atherosclerosis of native arteries of extremities, right leg ==

== ENCOUNTER → 2020-12-15 | Outpatient (CLI) | payer BC, OTHER | LOC: HYPER 09:50 | PROVIDERS: ATTEND Emergency Medicine | DX: E11.621 Type 2 diabetes mellitus with foot ulcer (principal); L97.512 Non-pressure chronic ulcer of other part of right foot with fat layer exposed; R60.0 Localized edema; E11.42 Type 2 diabetes mellitus with diabetic polyneuropathy; E11.51 Type 2 diabetes mellitus with diabetic peripheral angiopathy without gangrene; L84 Corns and callosities; I25.10 Atherosclerotic heart disease of native coronary artery without angina pectoris; E78.5 Hyperlipidemia, unspecified; E66.9 Obesity, unspecified; Z68.37 Body mass index [BMI] 37.0-37.9, adult; Z86.73 Personal history of transient ischemic attack (TIA), and cerebral infarction without residual deficits; Z89.512 Acquired absence of left leg below knee ==

== ENCOUNTER → 2020-12-31 | Outpatient (CLI) | payer BC, OTHER | LOC: HYPER 08:06 | PROVIDERS: ATTEND Emergency Medicine | DX: E11.621 Type 2 diabetes mellitus with foot ulcer (principal); L97.512 Non-pressure chronic ulcer of other part of right foot with fat layer exposed; E11.40 Type 2 diabetes mellitus with diabetic neuropathy, unspecified; E11.51 Type 2 diabetes mellitus with diabetic peripheral angiopathy without gangrene; E11.69 Type 2 diabetes mellitus with other specified complication; R60.0 Localized edema; L84 Corns and callosities; I25.10 Atherosclerotic heart disease of native coronary artery without angina pectoris; E78.5 Hyperlipidemia, unspecified; E66.9 Obesity, unspecified; Z68.37 Body mass index [BMI] 37.0-37.9, adult; Z86.73 Personal history of transient ischemic attack (TIA), and cerebral infarction without residual deficits; Z79.4 Long term (current) use of insulin; Z79.82 Long term (current) use of aspirin; Z89.512 Acquired absence of left leg below knee; Z79.899 Other long term (current) drug therapy; Z95.1 Presence of aortocoronary bypass graft ==

== ENCOUNTER → 2021-05-25 | Outpatient (CLI) | payer BC, OTHER | LOC: SJCVCIMAG 08:35 | PROVIDERS: ATTEND Nuclear Medicine Nuclear Cardiology | DX: I65.23 Occlusion and stenosis of bilateral carotid arteries (principal); I70.201 Unspecified atherosclerosis of native arteries of extremities, right leg; I25.10 Atherosclerotic heart disease of native coronary artery without angina pectoris; E11.9 Type 2 diabetes mellitus without complications; I10 Essential (primary) hypertension; E78.00 Pure hypercholesterolemia, unspecified; Z95.5 Presence of coronary angioplasty implant and graft; Z95.1 Presence of aortocoronary bypass graft; Z87.891 Personal history of nicotine dependence; Z88.8 Allergy status to other drugs, medicaments and biological substances; Z79.82 Long term (current) use of aspirin; Z79.4 Long term (current) use of insulin; Z79.899 Other long term (current) drug therapy ==

== ENCOUNTER → 2021-06-28 | Outpatient (CLI) | payer BC, OTHER ==
[~2021-06-28] VITALS: Ht 177.8 cm; Wt 126.5 kg
[2021-06-28 08:51] VITALS: BP 120/70
--- NOTE | 2021-06-28 09:02 | NUR ---
Pain Clinic Assessment: 1. History of Osteoarthritis: Not Applicable History of Rheumatoid Arthritis: Not Applicable 2. Height: 5 ft. 10 in. 177.8 cm. Weight: 278.8 lb. oz. 126.463 kg. Patient's BMI: 40.0 3. Vital Signs: BP: 120/70 Pulse: 80 Resp: 14 Temp: 02 Sat: 95 ECG Mon: 4. Pain Intensity: 3-4 without 1 with 5. Fall Risk: Dizziness: N Needs help standing or walking: Y Fallen in the last 3 months: N Fall risk comments: 6. Patient on Blood Thinner: Clopidogrel Bisulf(Plavix 7. History of Hypertension: N 8. Opioid Therapy greater than 6 weeks: Y Opiate Contract Signed: 07/11/17 9. Risk Assessment Tool Provided: LOW RISK 0/3 10. Functional Assessment Tool: 11. Recreational Drug Use: Never Drug Type: Tobacco Use: Never Smoker Tobacco Type: Amount or Packs/day: How Many Years: Alcohol Use: No Frequency: Quant:
== END ==
LOC: PAIN 08:33
PROVIDERS: ATTEND Clinical Nurse Specialist Adult Health
DX: G89.29 Other chronic pain (principal); M79.621 Pain in right upper arm; M79.622 Pain in left upper arm; G62.9 Polyneuropathy, unspecified; E11.9 Type 2 diabetes mellitus without complications; R60.1 Generalized edema; Z88.8 Allergy status to other drugs, medicaments and biological substances; Z79.4 Long term (current) use of insulin; Z79.82 Long term (current) use of aspirin; Z79.899 Other long term (current) drug therapy

== ENCOUNTER → 2021-07-06 | Outpatient (CLI) | payer BC, OTHER | LOC: HYPER 07:41 | PROVIDERS: ATTEND Emergency Medicine | DX: E11.621 Type 2 diabetes mellitus with foot ulcer (principal); L97.512 Non-pressure chronic ulcer of other part of right foot with fat layer exposed; E11.40 Type 2 diabetes mellitus with diabetic neuropathy, unspecified; E11.51 Type 2 diabetes mellitus with diabetic peripheral angiopathy without gangrene; E11.69 Type 2 diabetes mellitus with other specified complication; R60.0 Localized edema; L84 Corns and callosities; I25.10 Atherosclerotic heart disease of native coronary artery without angina pectoris; E78.5 Hyperlipidemia, unspecified; E66.9 Obesity, unspecified; Z68.37 Body mass index [BMI] 37.0-37.9, adult; Z86.73 Personal history of transient ischemic attack (TIA), and cerebral infarction without residual deficits; Z79.4 Long term (current) use of insulin; Z79.82 Long term (current) use of aspirin; Z89.512 Acquired absence of left leg below knee; Z95.1 Presence of aortocoronary bypass graft ==